=== PATIENT | female | born 1950 ===

== ENCOUNTER 2017-04-21 00:06 | Inpatient (IN) | payer OTHER ==
--- NOTE | 2017-04-21 00:38 | ED PDOC ---
Arrival/HPI - General Chief Complaint: Back Pain Time Seen by Provider: 04/21/17 00:24 Historian: Patient, Spouse - History of Present Illness Narrative History of Present Illness (Text): 04/21/17 00:38 Dipika Herrera is a 66 year old female, whose past medical history includes hypertension, hyperlipidemia, and colon cancer, who presents to the Emergency department accompanied by complaining of chest pain. 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 also reports some bilateral lower extremity swelling a few days , but denies any currently. Patient denies any fever, chills, shortness of breath, nausea, vomiting, diarrhea, urinary symptoms, neck pain, headache, dizziness, recent trauma, or any other complaints. Time/Duration: < week (4 days) Symptom Onset: Gradual Symptom Course: Worsening Activities at Onset: Rest, Light Context: Home Past Medical History - Provider Review Nursing Documentation Reviewed: Yes - Infectious Disease Hx of Infectious Diseases: None - Tetanus Immunization Tetanus Immunization: Unknown - Reproductive Menopause: Yes - Cardiac Hx Cardiac Arrhythmia: Yes Hx Hypertension: Yes - Pulmonary Hx Respiratory Disorders: No - Neurological Hx Neurological Disorder: No - HEENT Hx HEENT Disorder: No - Renal Hx Renal Disorder: No - Endocrine/Metabolic Hx Endocrine Disorders: Yes Hx Hypothyroidism: Yes - Hematological/Oncological Hx Blood Disorders: (pt is rh negative) Hx Cancer: Yes (dx with colon ca 07/2002, no chemo, had resection) - Integumentary Hx Dermatological Disorder: No - Musculoskeletal/Rheumatological Hx Musculoskeletal Disorders: No Hx Falls: No - Gastrointestinal Hx Gastrointestinal Disorders: No - Genitourinary/Gynecological Hx Genitourinary Disorders: No - Psychiatric Hx Depression: No Hx Emotional Abuse: No Hx Physical Abuse: No Hx Substance Use: No - Past Surgical History Past Surgical History: Non-Contributing - Surgical History Hx Orthopedic Surgery: Yes Other/Comment: fluid drained from cyst behind right knee. Colonoscopy - Anesthesia Hx Anesthesia: Yes Hx Anesthesia Reactions: Yes Hx Malignant Hyperthermia: No - Suicidal Assessment Feels Threatened In Home Enviroment: No Family/Social History - Physician Review Nursing Documentation Reviewed: Yes Family/Social History: No Known Family HX Smoking Status: Never Smoked Hx Alcohol Use: No Hx Substance Use: No Hx Substance Use Treatment: No Allergies/Home Meds Allergies/Adverse Reactions: Allergies nitroglycerin [From Nitro-Bid] Adverse Reaction (Verified 04/21/17 00:28) ANAPHYLAXIS Home Medications: Home Meds Medication Instructions Recorded Confirmed Zolpidem Tartrate [Ambien] 5 mg PO HS 08/15/14 02/01/15 amLODIPine [Norvasc] 5 mg PO DAILY 11/14/14 02/01/15 Amitriptyline [Elavil] 01/16/17 01/16/17 Atorvastatin [Lipitor] 01/16/17 Gabapentin [Neurontin] 01/16/17 Omeprazole Magnesium [Prilosec Otc] 01/16/17 Psyllium Husk [Metamucil] 01/16/17 hydroCHLOROthiazide [Hydrodiuril] 01/16/17 Review of Systems - Physician Review All systems were reviewed & negative as marked: Yes - Review of Systems Constitutional: Normal. absent: Fevers Eyes: Normal ENT: Normal Respiratory: Normal. absent: SOB, Cough Cardiovascular: Chest Pain Gastrointestinal: Normal. absent: Abdominal Pain, Diarrhea, Nausea, Vomiting Genitourinary Female: Normal. absent: Dysuria, Frequency, Hematuria, Urine Output Changes Musculoskeletal: Back Pain, Other (+bilateral lower extremity pain). absent: Neck Pain Skin: Normal. absent: Rash Neurological: Normal. absent: Headache, Dizziness Endocrine: Normal Hemo/Lymphatic: Normal Psychiatric: Normal Physical Exam Vital Signs Reviewed: Yes Temperature: Afebrile Blood Pressure: Normal Pulse: Regular Respiratory Rate: Normal Appearance: Positive for: Well-Appearing, Non-Toxic, Comfortable Pain Distress: None Mental Status: Positive for: Alert and Oriented X 3 - Systems Exam Head: Present: Atraumatic, Normocephalic Pupils: Present: PERRL Extroacular Muscles: Present: EOMI Conjunctiva: Present: Normal Mouth: Present: Moist Mucous Membranes Neck: Present: Normal Range of Motion Respiratory/Chest: Present: Clear to Auscultation, Good Air Exchange. No: Respiratory Distress, Accessory Muscle Use Cardiovascular: Present: Regular Rate and Rhythm, Normal S1, S2. No: Murmurs Abdomen: Present: Normal Bowel Sounds. No: Tenderness, Distention, Peritoneal Signs Back: Present: Normal Inspection Upper Extremity: Present: Normal Inspection. No: Cyanosis, Edema Lower Extremity: Present: Normal Inspection. No: Edema Neurological: Present: GCS=15, CN II-XII Intact, Speech Normal Skin: Present: Warm, Dry, Normal Color. No: Rashes Psychiatric: Present: Alert, Oriented x 3, Normal Insight, Normal Concentration Medical Decision Making ED Course and Treatment: 04/21/17 00:38 Impression: 66 year old female complaining of chest pain and back pain for 4 days. Plan: -- EKG -- Chest X-ray -- Labs, cardiac enzymes -- Urinalysis -- Morphine -- Zofran -- Reassess and disposition Prior Visits: Notes and results from previous visits were reviewed. On 01/06/2017, pt was seen in the Emergency department for right shoulder pain. Pt was d/c home. Progress Notes: Reviewed EKG, sinus bradycardia at 56 bpm. T wave changes laterally. Non- specific ST changes. 04/21/17 02:52 Reviewed radiology, Chest X-ray shows no active disease. 04/21/17 03:[address] Chandler, who is aware and agrees with plan. Accepts pt in to hospitalist service. Pt will go to Telemetry observation for chest pain. [employer] notified. - Lab Interpretations Lab Results: 04/21/17 01:45 04/21/17 01:45 Lab Results 04/21/17 01:45: WBC 6.9, RBC 4.66, Hgb 14.4, Hct 42.4, MCV 91.0, MCH 30.9, MCHC 34.0, RDW 14.1, Plt Count 229, MPV 10.8 04/21/17 01:45: Sodium 140, Potassium 4.1, Chloride 102, Carbon Dioxide 28, Anion Gap 14, BUN 15, Creatinine 0.7, Est GFR ( Amer) > 60, Est GFR (Non- Af Amer) > 60, Random Glucose 109, Calcium 9.3, Total Bilirubin 0.7, AST 52 H, ALT 58 H, Alkaline Phosphatase 115, Lactate Dehydrogenase 584, Total Creatine Kinase 205, Troponin I 0.01, Total Protein 8.7 H, Albumin 4.4, Globulin 4.4, Albumin/Globulin Ratio 1.0 L 04/21/17 01:45: PT 10.2, INR 0.94, APTT 28.7 I have reviewed the lab results: Yes - RAD Interpretation Radiology Orders: 04/21/17 00:41 CHEST PORTABLE [RAD] Stat - EKG Interpretation Interpreted by ED Physician: Yes Type: 12 lead EKG - Medication Orders Current Medication Orders: Discontinued Medications Aspirin (Aspirin) 325 mg PO ONCE STA Stop: 04/21/17 03:22 Morphine Sulfate (Morphine) 4 mg IVP STAT STA Stop: 04/21/17 00:47 Last Admin: 04/21/17 02:06 Dose: 4 mg Morphine Sulfate (Morphine) 4 mg IVP STAT STA Stop: 04/21/17 03:21 Ondansetron HCl (Zofran Inj) 4 mg IVP ONCE ONE Stop: 04/21/17 00:47 Last Admin: 04/21/17 02:06 Dose: 4 mg - Lorenaibe Statement The provider has reviewed the documentation as recorded by the Lorenaibnghia Meehan All medical record entries made by the Lorenaibnghia were at my direction and personally dictated by me. I have reviewed the chart and agree that the record accurately reflects my personal performance of the history, physical exam, medical decision making, and the department course for this patient. I have also personally directed, reviewed, and agree with the discharge instructions and disposition. Disposition/Present on Arrival - Present on Arrival Any Indicators Present on Arrival: No History of DVT/PE: No History of Uncontrolled Diabetes: No Urinary Catheter: No History of Decub. Ulcer: No History Surgical Site Infection Following: None - Disposition Have Diagnosis and Disposition been Completed?: Yes Diagnosis: Chest pain, Back pain Disposition: HOSPITALIZED Disposition Time: 03:30 Patient Plan: Observation Condition: STABLE Discharge Instructions (ExitCare): Chest Pain (ED)
[2017-04-21] MEDS ORDERED: Morphine 4 mg/ml ISec IVP STA ×2 (00:46→03:20)
[2017-04-21 01:56] LABS: HEMATOCRIT 42.4 % (36.0-48.0); MEAN CORPUSCULAR HEMOGLOBIN 30.9 pg (25.0-35.0); MEAN PLATELET VOLUME 10.8 fl (7.0-11.0); RED CELL DISTRIBUTION WIDTH 14.1 % (11.5-14.5); WHITE BLOOD COUNT 6.9 10^3/ul (4.5-11.0)
[2017-04-21 02:10] LABS: ALKALINE PHOSPHATASE 115 U/L (38-133); ALT/SGPT 58 U/L (7-56); AST/SGOT 52 U/L (15-39); BILIRUBIN,TOTAL 0.7 mg/dL (0.2-1.3); BLOOD UREA NITROGEN 15 mg/dL (7-21); CALCIUM 9.3 mg/dL (8.4-10.5); CARBON DIOXIDE 28 mmol/L (21-33); CHLORIDE 102 mmol/L (98-107); GFR AFRICAN-AMERICAN > 60; GLUCOSE,RANDOM 109 mg/dL (70-110); POTASSIUM 4.1 mmol/L (3.6-5.0); SODIUM 140 mmol/L (132-148); TOTAL PROTEIN 8.7 g/dL (5.8-8.3)
[2017-04-21 02:15] LABS: INR 0.94 (0.93-1.08); PARTIAL THROMBOPLASTIN TIME 28.7 Seconds (23.7-30.8)
[2017-04-21 02:22] LABS: TROPONIN I 0.01 ng/mL
[2017-04-21] MEDS ORDERED: Non Formulary Medication (Ketotifen Fumarate [Zaditor] 1 DROP) OD PRN (04:22)
[2017-04-21] MEDS ORDERED: Albuterol 0.083% Inhal Sol (2.5 mg/3 mL) UD IH PRN (04:26)
[2017-04-21 04:56] LABS: URINE BILIRUBIN NEGATIVE (NEGATIVE); URINE BLOOD NEGATIVE (NEGATIVE); URINE GLUCOSE (UA) NEGATIVE (NEGATIVE); URINE KETONE NEGATIVE (NEGATIVE); URINE LEUKOCYTE ESTERASE NEGATIVE Leu/uL (NEGATIVE); URINE PROTEIN 30 mg/dL (<30 mg/dL); URINE UROBILINOGEN 0.2 E.U./dL (<1 E.U./dL)
[2017-04-21 05:01] LABS: URINE APPEARANCE CLEAR (CLEAR); URINE COLOR YELLOW (YELLOW)
[2017-04-21 05:12] LABS: URINE EPITHELIAL CELLS 0 - 2 /hpf (0-5); URINE RBC 0 - 2 /hpf (0-2)
[2017-04-21 05:13] LABS: URINE BACTERIA OCC (NEG)
--- NOTE | 2017-04-21 05:32 | CP.PCM.HP ---
<RinkuBreedwardAlex shaw - Last Filed: 04/21/17 06:07> History of Present Illness - History of Present Illness History of Present Illness: CC: Back pain and weakness This is a 66yo F w/ a PMHx of Colon CA s/p surgery in remission, hypertension, hyperlipidemia who is presenting to the ED w/ back pain that is debilitating to the point she is getting weak and dropping things in her hands. This kind of back pain has never happened to her before. She states she has been feeling a ball in her back, in the lower right region, grow over the past few years. She has never had a scan of it. She denies bowel or bladder incontinence. She denies fevers/chills, GARCIA, SOB at rest, current chest pain, or lower extremity pain. She admits to lower extremity swelling, worse on the hot days of the week. She states she gets short of breath going up stairs, sleeps with one pillow, and never wakes up in the middle of the night gasping for air. Admits to 40lb weight gain over the past 4 months, unintnentional and not eating more. PMhx: Colon Cancer, HTN, HLD, back pain Surgeries: gallbladder removal, colon resection Allergies: nitroglycercin, but when questioned she said that she gets a fast heart beat and feels flushed which is what the medicine does Meds: please refer to ROMELIA famHx: Father with unkonwn cancer, sister with breast CA Social: Lives at home with , denies smoking.etoh.drugs.independent in all IADLs Present on Admission - Present on Admission Any Indicators Present on Admission: No History of DVT/PE: No History of Uncontrolled Diabetes: No Urinary Catheter: No Decubitus Ulcer Present: No Past Patient History - Infectious Disease Hx of Infectious Diseases: None - Tetanus Immunizations Tetanus Immunization: Unknown - Past Social History Smoking Status: Never Smoked - CARDIAC Hx Cardia Arrhythmia: Yes Hx Hypertension: Yes - PULMONARY Hx Respiratory Disorders: No - NEUROLOGICAL Hx Neurological Disorder: No - HEENT Hx HEENT Problems: No - RENAL Hx Chronic Kidney Disease: No - ENDOCRINE/METABOLIC Hx Endocrine Disorders: Yes Hx Hypothyroidism: Yes - HEMATOLOGICAL/ONCOLOGICAL Hx Blood Disorders: (pt is rh negative) Hx Cancer: Yes (dx with colon ca 07/2002, no chemo, had resection) - INTEGUMENTARY Hx Dermatological Problems: No - MUSCULOSKELETAL/RHEUMATOLOGICAL Hx Musculoskeletal Disorders: No Hx Falls: No - GASTROINTESTINAL Hx Gastrointestinal Disorders: No - GENITOURINARY/GYNECOLOGICAL Hx Genitourinary Disorders: No - PSYCHIATRIC Hx Depression: No Hx Emotional Abuse: No Hx Physical Abuse: No Hx Substance Use: No - SURGICAL HISTORY Hx Orthopedic Surgery: Yes Other/Comment: fluid drained from cyst behind right knee. Colonoscopy - ANESTHESIA Hx Anesthesia: Yes Hx Anesthesia Reactions: Yes Hx Malignant Hyperthermia: No Meds Allergies/Adverse Reactions: Allergies Allergy/AdvReac Type Severity Reaction Status Date / Time nitroglycerin AdvReac ANAPHYLAXIS Verified 04/21/17 00:28 [From Nitro-Bid] Physical Exam - Constitutional Appears: Well, Non-toxic Additional comments: obese female resting comfortably in bed at rest, when she moves around her back hurts a lot - Eye Exam Eye Exam: EOMI - ENT Exam ENT Exam: Mucous Membranes Moist - Neck Exam Neck exam: Positive for: Full Rom. Negative for: Lymphadenopathy - Respiratory Exam Respiratory Exam: Clear to Auscultation Bilateral, NORMAL BREATHING PATTERN. absent: Rales, Rhonchi, Wheezes - Cardiovascular Exam Cardiovascular Exam: REGULAR RHYTHM, +S1, +S2 - GI/Abdominal Exam GI & Abdominal Exam: Normal Bowel Sounds, Soft - Rectal Exam Rectal Exam: Deferred - Extremities Exam Extremities exam: Positive for: full ROM, normal capillary refill, normal inspection, pedal edema. Negative for: calf tenderness, joint swelling, tenderness - Back Exam Back exam: absent: CVA tenderness (L), CVA tenderness (R) - Neurological Exam Neurological exam: Alert, Oriented x3 Additional comments: walks with cane at baseline - Psychiatric Exam Psychiatric exam: Normal Affect Results - Vital Signs Recent Vital Signs: Last Vital Signs Temp 98.4 F 04/21/17 04:38 Pulse 52 L 04/21/17 04:38 Resp 16 04/21/17 04:38 BP 128/94 H 04/21/17 04:38 Pulse Ox 96 04/21/17 04:38 - Labs Result Diagrams: 04/21/17 01:45 04/21/17 01:45 Labs: Laboratory Results - last 24 hr 04/21/17 04:05 Urine Color Yellow Urine Appearance Clear Urine pH 7.0 Ur Specific [place] 1.015 Urine Protein 30 H Urine Glucose (UA) Negative Urine Ketones Negative Urine Blood Negative Urine Nitrate Negative Urine Bilirubin Negative Urine Urobilinogen 0.2 Ur Leukocyte Esterase Negative Urine RBC 0 - 2 Urine WBC 2 - 5 Ur Epithelial Cells 0 - 2 Urine Bacteria Occ Hyaline Casts 0 - 2 Assessment & Plan - Assessment and Plan (Free Text) Assessment: 66yo F admitted for back pain; Bulgarian Speaking Back Pain -obvious mass palpable in the lower back; f/u Cat scan chest abdomen, pelvis with IV contrast -pain control Chest Pain -cardio consult: Shanda; [place] piñas -echo ordered -c/w home meds -trend troponins; initial negative -initial EKG NSR with ST wave changes Leg Swelling -D Dimer ordered -given 20IV lasix -if d dimer elevated order ultrasound of lower extrem; no previous history of DVT HTN -c/w home meds HLD -c/w home meds Proph Pepcid Lovenox Heart Healthy Diet Case Discussed with Dr. Ramesh Espinoza PGY1 Night Float Decision To Admit - Pt Status Changed To: Hospital Disposition Of: Inpatient Admission - Admit Certification Admit to Inpatient:: After my assessment, the patient will require hospitalization for at least two midnights. This is because of the severity of symptoms shown, intensity of services needed, and/or the medical risk in this patient being treated as an outpatient. - . Bed Request Type: Remote Telemetry Admitting Physician: Benjamín Chandler <Benjamín Chandler - Last Filed: 04/22/17 12:06> Results - Vital Signs Recent Vital Signs: Last Vital Signs Temp 98 F 04/22/17 11:54 Pulse 52 L 04/22/17 11:54 Resp 20 04/22/17 11:54 BP 115/66 04/22/17 11:54 Pulse Ox 94 L 04/22/17 05:58 - Labs Result Diagrams: 04/22/17 07:40 04/22/17 07:40 Labs: Laboratory Results - last 24 hr 04/21/17 04/21/17 04/21/17 16:36 20:57 21:34 WBC RBC Hgb Hct MCV MCH MCHC RDW Plt Count MPV Gran % Lymph % (Auto) [place] % (Auto) Eos % (Auto) Baso % (Auto) Gran # Lymph # [place] # Eos # Baso # Sodium Potassium Chloride Carbon Dioxide Anion Gap BUN Creatinine Est GFR ( Amer) Est GFR (Non-Af Amer) POC Glucose (mg/dL) 106 120 H 97 Random Glucose Calcium Total Bilirubin AST ALT Alkaline Phosphatase Total Protein Albumin Globulin Albumin/Globulin Ratio [facility] 3rd Generation 04/22/17 04/22/17 04/22/17 07:29 07:40 07:40 WBC 6.4 RBC 4.62 Hgb 13.9 Hct 42.6 MCV 92.2 MCH 30.1 MCHC 32.6 RDW 14.3 Plt Count 226 MPV 11.3 H Gran % 74.5 H Lymph % (Auto) 15.9 L [place] % (Auto) 6.9 H Eos % (Auto) 2.4 Baso % (Auto) 0.3 Gran # 4.73 Lymph # 1.0 L [place] # 0.4 Eos # 0.2 Baso # 0.02 Sodium Potassium Chloride Carbon Dioxide Anion Gap BUN Creatinine Est GFR ( Amer) Est GFR (Non-Af Amer) POC Glucose (mg/dL) 98 Random Glucose Calcium Total Bilirubin AST ALT Alkaline Phosphatase Total Protein Albumin Globulin Albumin/Globulin Ratio [facility] 3rd Generation 3.53 04/22/17 04/22/17 04/22/17 07:40 07:55 10:59 WBC RBC Hgb Hct MCV MCH MCHC RDW Plt Count MPV Gran % Lymph % (Auto) [place] % (Auto) Eos % (Auto) Baso % (Auto) Gran # Lymph # [place] # Eos # Baso # Sodium 137 Potassium 3.9 Chloride 98 Carbon Dioxide 30 Anion Gap 13 BUN 19 Creatinine 0.9 Est GFR ( Amer) > 60 Est GFR (Non-Af Amer) > 60 POC Glucose (mg/dL) 97 144 H Random Glucose 93 Calcium 8.8 Total Bilirubin 0.7 AST 86 H ALT 93 H Alkaline Phosphatase 97 Total Protein 7.8 Albumin 4.0 Globulin 3.9 Albumin/Globulin Ratio 1.0 L [facility] 3rd Generation Attending/Attestation - Attestation I have personally seen and examined this patient.: Yes I have fully participated in the care of the patient.: Yes I have reviewed all pertinent clinical information: Yes Notes (Text): 04/22/17 12:05 Agree with history,physical examination, assessment and plan.
[2017-04-21] MEDS ORDERED: Iohexol 350 MG/100 ML VIAL ONE (05:47)
--- NOTE | 2017-04-21 07:01 | CT ---
EXAM: CT Chest With Intravenous Contrast CT Abdomen and Pelvis With Intravenous Contrast CLINICAL HISTORY: 66 years old, female; Pain; Abdominal pain; Generalized; Chest pain; Type not specified; Additional info: Back pain w mass TECHNIQUE: Axial computed tomography images of the chest, abdomen and pelvis with intravenous contrast. This CT exam was performed using one or more of the following dose reduction techniques: automated exposure control, adjustment of the mA and/or kV according to patient size, and/or use of iterative reconstruction technique. Coronal and sagittal reformatted images were created and reviewed. CONTRAST: 50 mL of OMNI 350 administered intravenously. EXAM DATE/TIME: 04/21/2017 5:27 AM COMPARISON: DX - CHEST PORTABLE 04/21/2017 2:11:53 AM FINDINGS: CHEST: Lungs: Unremarkable. No mass. No consolidation. Pleural space: Unremarkable. No significant effusion. No pneumothorax. Heart: Unremarkable. No cardiomegaly. No significant pericardial effusion. Mediastinum: Small hiatal hernia. ABDOMEN: Liver: Unremarkable. No mass. Gallbladder and bile ducts: Cholecystectomy with common duct dilatation. Common bile duct measures up to 1.4 cm. Pancreas: Unremarkable. No ductal dilation. No mass. Spleen: Unremarkable. No splenomegaly. Adrenals: Well defined low attenuation right adrenal mass measures 1.6 x 3.4 cm. Kidneys and ureters: Unremarkable. No hydronephrosis. No solid mass. Stomach and bowel: Unremarkable. No obstruction. No mucosal thickening. Appendix: No findings to suggest acute appendicitis. PELVIS: Bladder: Unremarkable. No mass. Reproductive: Endometrium measures up to 1.5 cm. CHEST, ABDOMEN and PELVIS: Intraperitoneal space: Unremarkable. No significant fluid collection. No free air. Bones/joints: Disc spacers at L2-3 and L3-4. Spondylosis thoracic spine. No acute fracture. No dislocation. Soft tissues: Lipoma right gluteus tiny muscle measures approximately 3.5 x 4 x 9 cm, inferior margin incompletely imaged. Small fat-containing umbilical hernia. Vasculature: Unremarkable. No aortic aneurysm. Lymph nodes: Unremarkable. No enlarged lymph nodes. IMPRESSION: 1. No acute abnormality in chest or abdomen. 2. Distended endometrium for age. Recommend additional evaluation with pelvic ultrasound. 3. Right adrenal adenoma. 4. Remaining findings as above.
--- NOTE | 2017-04-21 08:31 | RAD ---
HISTORY: fever COMPARISON: Chest x-ray performed 11/14/14 TECHNIQUE: Chest, one view. FINDINGS: Examination limited by habitus. LUNGS: No focal consolidation. Please note that chest x-ray has limited sensitivity for the detection of pulmonary masses. PLEURA: No significant pleural effusion identified. No definite pneumothorax . CARDIOVASCULAR: Heart size is top normal. OSSEOUS STRUCTURES: Degenerative changes. Acromioclavicular arthropathy. VISUALIZED UPPER ABDOMEN: Unremarkable. OTHER FINDINGS: None. IMPRESSION: No focal consolidation, significant pleural effusion, or definite pneumothorax identified.
[2017-04-21] MEDS: Enoxaparin 40 mg Syringe SC SCH (10:30)
[2017-04-21] MEDS: Levothyroxine 25 MCG TAB PO SCH (10:30)
[2017-04-21] MEDS: Pantoprazole 40 mg EC Tab PO SCH (10:34)
[2017-04-21] MEDS: Oxycodone/Acetaminophen 5/325 mg Tab PO PRN ×2 (10:35→17:36)
[2017-04-21] MEDS: Insulin Lispro 1 UNITS/0.01 ML SC SCH ×2 (10:36→11:30)
[2017-04-21 11:30] LABS: TROPONIN I < 0.01 ng/mL
[2017-04-21] MEDS: Psyllium Packet PO SCH (12:25)
--- NOTE | 2017-04-21 13:23 | CP.PCM.CON ---
History of Present Illness - History of Present Illness History of Present Illness: General Surgery Consult Re: Back mass HPI: 66F presented to ER C/O back pain that radiates to her R leg for 3 days. Pain is different from her chronic back pain and seems to originate from a lump in her R back that has been slowly growing in size for 4-5 years. Pain is debilitating to her ADLs and she is dropping things from her hands. Pain is worse with movement.This has never happened before. Denies F/C, N/V/D/C, SOB at rest, headache, chest pain, abd pain, dysuria, incontinence. ~40lb weight gain over the past 4 months, unintentional. Reports others in her family have needed large lipomas removed. PMH: Colon CA in 2001, HTN, HLD, Hypothyroid, chronic back pain PSH: Colon resection, cholecystectomy, Lumbar fusion SH: No tobacco, EtOH, or Drug use All: palpitations with Nitroglycerin Meds: See MAR Review of Systems - Review of Systems All systems: reviewed and no additional remarkable complaints except (as per HPI ) Past Patient History - Infectious Disease Hx of Infectious Diseases: None - Tetanus Immunizations Tetanus Immunization: Unknown - Past Social History Smoking Status: Never Smoked - CARDIAC Hx Cardia Arrhythmia: Yes Hx Hypertension: Yes - PULMONARY Hx Respiratory Disorders: No - NEUROLOGICAL Hx Neurological Disorder: No - HEENT Hx HEENT Problems: No - RENAL Hx Chronic Kidney Disease: No - ENDOCRINE/METABOLIC Hx Endocrine Disorders: Yes Hx Hypothyroidism: Yes - HEMATOLOGICAL/ONCOLOGICAL Hx Blood Disorders: (pt is rh negative) Hx Cancer: Yes (dx with colon ca 07/2002, no chemo, had resection) - INTEGUMENTARY Hx Dermatological Problems: No - MUSCULOSKELETAL/RHEUMATOLOGICAL Hx Musculoskeletal Disorders: No Hx Falls: No - GASTROINTESTINAL Hx Gastrointestinal Disorders: No - GENITOURINARY/GYNECOLOGICAL Hx Genitourinary Disorders: No - PSYCHIATRIC Hx Depression: No Hx Emotional Abuse: No Hx Physical Abuse: No Hx Substance Use: No - SURGICAL HISTORY Hx Orthopedic Surgery: Yes Other/Comment: fluid drained from cyst behind right knee. Colonoscopy - ANESTHESIA Hx Anesthesia: Yes Hx Anesthesia Reactions: Yes Hx Malignant Hyperthermia: No Meds Allergies/Adverse Reactions: Allergies Allergy/AdvReac Type Severity Reaction Status Date / Time nitroglycerin AdvReac ANAPHYLAXIS Verified 04/21/17 00:28 [From Nitro-Bid] - Medications Medications: Current Medications Acetaminophen (Tylenol 325mg Tab) 650 mg PO Q6H PRN PRN Reason: Fever >100.4 F Albuterol Sulfate (Albuterol 0.083% Inhal Ashtyn (2.5 Mg/3 Ml) Ud) 2.5 mg IH Q2H PRN PRN Reason: Shortness of Breath Amitriptyline HCl (Elavil) 50 mg PO HS [facility] Amlodipine Besylate (Norvasc) 5 mg PO DAILY [facility] Last Admin: 04/21/17 10:31 Dose: 5 mg Aspirin (Aspirin Chewable) 81 mg PO DAILY [facility] Last Admin: 04/21/17 10:34 Dose: 81 mg Atorvastatin Calcium (Lipitor) 80 mg PO HS [facility] Enoxaparin Sodium (Lovenox) 40 mg SC DAILY [facility] PRN Reason: Protocol Last Admin: 04/21/17 10:30 Dose: 40 mg Gabapentin (Neurontin) 600 mg PO TID [facility] PRN Reason: Protocol Last Admin: 04/21/17 10:31 Dose: 600 mg Hydrochlorothiazide (Hydrodiuril) 25 mg PO DAILY [facility] Last Admin: 04/21/17 10:34 Dose: 25 mg Insulin Human Lispro (Humalog) 0 units SC [facility] PRN Reason: Protocol Last Admin: 04/21/17 10:36 Dose: Not Given Levothyroxine Sodium (Synthroid) 25 mcg PO ACB [facility] Last Admin: 04/21/17 10:30 Dose: 25 mcg Non-Formulary Medication (Ketotifen Fumarate [Zaditor]) 1 drop OD Q8 PRN PRN Reason: Itching / Pruritus Oxycodone/Acetaminophen (Percocet 5/325 Mg Tab) 1 tab PO Q6 PRN PRN Reason: Pain, severe (8-10) Stop: 04/24/17 04:23 Last Admin: 04/21/17 10:35 Dose: 1 tab Pantoprazole Sodium (Protonix Ec Tab) 40 mg PO ACB [facility] Last Admin: 04/21/17 10:34 Dose: 40 mg Psyllium Hydrophilic Mucilloid (Hydrocil Instant) 1 pkt PO DAILY [facility] Last Admin: 04/21/17 12:25 Dose: 1 pkt Tramadol HCl (Ultram) 50 mg PO Q6 PRN PRN Reason: Pain, moderate (4-7) Zolpidem Tartrate (Ambien) 5 mg PO HS [facility] Physical Exam - Constitutional Appears: Non-toxic, No Acute Distress - Head Exam Head Exam: ATRAUMATIC, NORMOCEPHALIC - Eye Exam Eye Exam: EOMI. absent: Scleral icterus - ENT Exam ENT Exam: Mucous Membranes Moist Additional comments: trachea midline - Respiratory Exam Respiratory Exam: NORMAL BREATHING PATTERN. absent: Respiratory Distress - Cardiovascular Exam Cardiovascular Exam: RRR, +S1, +S2 - GI/Abdominal Exam GI & Abdominal Exam: Soft. absent: Distended, Guarding, Tenderness - Rectal Exam Rectal Exam: Deferred - Extremities Exam Extremities exam: Positive for: normal capillary refill, pedal edema (trace). Negative for: calf tenderness - Back Exam Back exam: absent: CVA tenderness (L), CVA tenderness (R), tenderness (10cm mobile mass beneath the skin on R mid back near the spine) - Neurological Exam Neurological exam: Alert, Oriented x3 - Psychiatric Exam Psychiatric exam: Normal Affect, Normal Mood - Skin Skin Exam: Dry, Warm Results - Vital Signs Recent Vital Signs: Last Vital Signs Temp 98.1 F 04/21/17 12:48 Pulse 58 L 04/21/17 12:48 Resp 20 04/21/17 12:48 BP 161/81 H 04/21/17 12:48 Pulse Ox 96 04/21/17 04:38 - Labs Result Diagrams: 04/21/17 01:45 04/21/17 01:45 Labs: Laboratory Results - last 24 hr 04/21/17 04/21/17 04/21/17 04:05 07:40 11:02 POC Glucose (mg/dL) 104 Lactate Dehydrogenase 610 Total Creatine Kinase 169 Troponin I < 0.01 Urine Color Yellow Urine Appearance Clear Urine pH 7.0 Ur Specific Winkelman 1.015 Urine Protein 30 H Urine Glucose (UA) Negative Urine Ketones Negative Urine Blood Negative Urine Nitrate Negative Urine Bilirubin Negative Urine Urobilinogen 0.2 Ur Leukocyte Esterase Negative Urine RBC 0 - 2 Urine WBC 2 - 5 Ur Epithelial Cells 0 - 2 Urine Bacteria Occ Hyaline Casts 0 - 2 04/21/17 11:36 POC Glucose (mg/dL) 98 Lactate Dehydrogenase Total Creatine Kinase Troponin I Urine Color Urine Appearance Urine pH Ur Specific Wink[place] Urine Protein Urine Glucose (UA) Urine Ketones Urine Blood Urine Nitrate Urine Bilirubin Urine Urobilinogen Ur Leukocyte Esterase Urine RBC Urine WBC Ur Epithelial Cells Urine Bacteria Hyaline Casts - Imaging and Cardiology CT scan - abdomen Status: Image reviewed by me, Report reviewed by me Assessment & Plan - Assessment and Plan (Free Text) Assessment: 66F with back pain possibly 2/2 R back mass Plan: Analgesia Dr. Brewster to see tomorrow. OR planning Saturday or Saturday D/W Dr. Ney Dang PGY3
[2017-04-21 13:58] VITALS: BMI 39.9
--- NOTE | 2017-04-21 17:21 | CON ---
DATE: 04/21/2017 REASON FOR CONSULTATION: Chest pain and back pain. HISTORY OF PRESENT ILLNESS: The patient is a 66-year-old female who has history of hypertension, hyp erlipidemia, and a history of colonic cancer, presented because of back pain and chest pain that is s harp in nature. The patient denies any associated diaphoresis and is unaware of any history of heart attack in the past. The patient is being followed by a maintenance planner by the name of Dr. Geiger in [facility], but does not recall undergoing any invasive cardiac workup. The patient denies any shortness of breath. SOCIAL HISTORY: Nonsmoker, nondrinker. MEDICATIONS: Albuterol inhaler 2.5 mg q. 2 hours p.r.n., Ambien 5 mg at bedtime, aspirin 81 mg once a day, Elavil 50 mg once a day, hydrochlorothiazide 25 mg once a day, Lipitor 80 mg once a day, Love nox 40 mg subcutaneous once a day, Neurontin 600 mg t.i.d., Norvasc 5 mg once a day, Protonix 40 mg p .o. once a day, once a day, Synthroid 25 mcg once a day, Ultram 50 mg p.o. q. 6 hours p.r.n. REVIEW OF SYSTEMS: No dizziness or syncope. No fever or chills. PHYSICAL EXAMINATION: GENERAL: The patient is an elderly female who does not appear to be in any distress. VITAL SIGNS: Blood pressure 161/81, heart rate 58, temperature 98.1, respiration 18. HEENT: Normocephalic. NECK: No JVD. CHEST: Clear. HEART: S1, S2 regular. EXTREMITIES: No edema. LABORATORY DATA: CBC is entirely within normal limits. PT, PTT are within normal limits. D-dimer is elevated at 0.63. SMA-7 is entirely within normal limits. Two sets of troponins are negative. Chest x-ray revealed a normal cardiac silhouette, no mediastinal dilatation is noted. EKG revealed s inus bradycardia at a rate of 56, lateral ischemic Q-wave changes. CT scan of the chest, abdomen and pelvis with intravenous contrast only revealed no acute abnormality in the chest or the abdomen. Dis tant for age. Recommend additional evaluation with pelvic ultrasound. Right adrenal adenoma. T here is no mention of an aortic aneurysm. ASSESSMENT: 1. Chest pain, myocardial infarction is ruled out. 2. Lateral ischemia, consider underlying coronary artery disease. 3. Mild sinus bradycardia. 4. Hypertension. RECOMMENDATIONS: Continue current Synthroid 25 mcg once a day, Norvasc 5 mg once a day, Lovenox at 4 0 mg once a day, Lipitor at 80 mg once a day, hydrochlorothiazide 25 mg once a day, Norvasc at 5 mg o nce a day, aspirin 81 mg once a day. Obtain an echocardiogram and venous Doppler of the lower extrem ities. Repeat 12-lead EKG. Obtain TSH level. Samm Montes MD cc: [id number] TT: 04/21/2017 17:20:32 Confirmation # [id number] Dictation # [id number]
--- NOTE | 2017-04-21 22:02 | CARD ---
APPROVED REPORT EKG Measurement Heart [id number] ND 160P70 [id number] <Conclusion> Sinus bradycardia T wave abnormality, consider lateral ischemia Abnormal ECG
[2017-04-22 08:01] LABS: ADD MANUAL DIFF? NO
[2017-04-22 08:03] LABS: BASO # 0.02 K/mm3 (0.0-2.0); BASO % 0.3 % (0.0-3.0); EOS # 0.2 (0.0-0.7); EOS % 2.4 % (1.5-5.0); GRAN # 4.73 (1.4-6.5); GRAN % 74.5 % (50.0-68.0); HEMATOCRIT 42.6 % (36.0-48.0); LYMPH % 15.9 % (22.0-35.0); MEAN CELL VOLUME 92.2 fL (80.0-105.0); MEAN CORPUSCULAR HEMOGLOBIN 30.1 pg (25.0-35.0); MEAN CORPUSCULAR HGB CONC 32.6 g/dl (31.0-37.0); MEAN PLATELET VOLUME 11.3 fl (7.0-11.0); MONO # 0.4 (0.1-0.6); MONO % 6.9 % (1.0-6.0); PLATELET COUNT 226 10^3/uL (120.0-450.0); RED CELL DISTRIBUTION WIDTH 14.3 % (11.5-14.5); WHITE BLOOD COUNT 6.4 10^3/ul (4.5-11.0)
[2017-04-22] MEDS: Insulin Lispro 1 UNITS/0.01 ML SC SCH ×5 (08:03→21:56)
[2017-04-22 08:18] LABS: ALKALINE PHOSPHATASE 97 U/L (38-133); ALT/SGPT 93 U/L (7-56); AST/SGOT 86 U/L (15-39); BILIRUBIN,TOTAL 0.7 mg/dL (0.2-1.3); BLOOD UREA NITROGEN 19 mg/dL (7-21); CALCIUM 8.8 mg/dL (8.4-10.5); CARBON DIOXIDE 30 mmol/L (21-33); CHLORIDE 98 mmol/L (95-110); GFR AFRICAN-AMERICAN > 60; GLUCOSE,RANDOM 93 mg/dL (70-110); POTASSIUM 3.9 mmol/L (3.6-5.0); SODIUM 137 mmol/L (132-148); TOTAL PROTEIN 7.8 g/dL (5.8-8.3)
[2017-04-22] MEDS: Enoxaparin 40 mg Syringe SC SCH (11:02)
[2017-04-22] MEDS: Levothyroxine 25 MCG TAB PO SCH (11:03)
[2017-04-22] MEDS: Pantoprazole 40 mg EC Tab PO SCH (11:03)
--- NOTE | 2017-04-22 12:22 | CP.PCM.PN ---
<GavinVivekmiryam - Last Filed: 04/22/17 12:26> Subjective - Date & Time of Evaluation Date of Evaluation: 04/22/17 Time of Evaluation: 08:00 - Subjective Subjective: Pt was seen and examined at bedside. Pt states she is feeling better compared to yesterday. Her back pain has improved. She is tolerating po diet. She is voiding regularly however has not had a bm and has mild complaints of constipation. Pt denied fever, chills, sob, chest pain, abdominal pains, n/v/d or urinary symptoms. Objective - Vital Signs/Intake and Output Vital Signs (last 24 hours): Temp Pulse Resp BP Pulse Ox 98 F 52 L 20 115/66 94 L 04/22/17 11:54 04/22/17 11:54 04/22/17 11:54 04/22/17 11:54 04/22/17 05:58 Intake and Output: 04/22/17 04/22/17 06:59 18:59 Intake Total 1260 Output Total 2 Balance 1258 - Medications Medications: Current Medications Albuterol Sulfate (Albuterol 0.083% Inhal Ashtyn (2.5 Mg/3 Ml) Ud) 2.5 mg IH Q2H PRN PRN Reason: Shortness of Breath Amitriptyline HCl (Elavil) 50 mg PO HS [facility] Last Admin: 04/21/17 21:58 Dose: 50 mg Amlodipine Besylate (Norvasc) 5 mg PO DAILY [facility] Last Admin: 04/22/17 11:03 Dose: 5 mg Aspirin (Aspirin Chewable) 81 mg PO DAILY [facility] Last Admin: 04/22/17 11:00 Dose: 81 mg Atorvastatin Calcium (Lipitor) 80 mg PO HS [facility] Last Admin: 04/21/17 21:58 Dose: 80 mg Enoxaparin Sodium (Lovenox) 40 mg SC DAILY [facility] PRN Reason: Protocol Last Admin: 04/22/17 11:02 Dose: 40 mg Gabapentin (Neurontin) 600 mg PO TID [facility] PRN Reason: Protocol Last Admin: 04/22/17 11:02 Dose: 600 mg Hydrochlorothiazide (Hydrodiuril) 25 mg PO DAILY [facility] Last Admin: 04/22/17 11:01 Dose: 25 mg Insulin Human Lispro (Humalog) 0 units SC [facility] PRN Reason: Protocol Last Admin: 04/22/17 08:03 Dose: Not Given Levothyroxine Sodium (Synthroid) 25 mcg PO ACB [facility] Last Admin: 04/22/17 11:03 Dose: 25 mcg Non-Formulary Medication (Ketotifen Fumarate [Zaditor]) 1 drop OD Q8 PRN PRN Reason: Itching / Pruritus Pantoprazole Sodium (Protonix Ec Tab) 40 mg PO ACB [facility] Last Admin: 04/22/17 11:03 Dose: 40 mg Psyllium Hydrophilic Mucilloid (Hydrocil Instant) 1 pkt PO DAILY [facility] Last Admin: 04/21/17 12:25 Dose: 1 pkt Tramadol HCl (Ultram) 50 mg PO Q6 PRN PRN Reason: Pain, moderate (4-7) Last Admin: 04/21/17 21:58 Dose: 50 mg Zolpidem Tartrate (Ambien) 5 mg PO HS [facility] Last Admin: 04/21/17 21:58 Dose: 5 mg - Labs Labs: 04/22/17 07:40 04/22/17 07:40 PT 10.2 Seconds (9.9-11.8) 04/21/17 01:45 INR 0.94 (0.93-1.08) 04/21/17 01:45 APTT 28.7 Seconds (23.7-30.8) 04/21/17 01:45 - Constitutional Appears: No Acute Distress - Head Exam Head Exam: ATRAUMATIC, NORMAL INSPECTION, NORMOCEPHALIC - Eye Exam Eye Exam: EOMI, Normal appearance, PERRL Pupil Exam: NORMAL ACCOMODATION, PERRL - ENT Exam ENT Exam: Mucous Membranes Moist, Normal Exam - Neck Exam Neck Exam: Full ROM, Normal Inspection. absent: Lymphadenopathy - Respiratory Exam Respiratory Exam: Clear to Ausculation Bilateral, NORMAL BREATHING PATTERN - Cardiovascular Exam Cardiovascular Exam: REGULAR RHYTHM, +S1, +S2. absent: Murmur - GI/Abdominal Exam GI & Abdominal Exam: Soft, Normal Bowel Sounds. absent: Tenderness - Extremities Exam Extremities Exam: Full ROM, Normal Capillary Refill, Normal Inspection. absent : Joint Swelling, Pedal Edema - Back Exam Back Exam: NORMAL INSPECTION - Neurological Exam Neurological Exam: Alert, Awake, CN II-XII Intact, Oriented x3 - Psychiatric Exam Psychiatric exam: Normal Affect, Normal Mood - Skin Skin Exam: Dry, Intact, Normal Color, Warm Assessment and Plan - Assessment and Plan (Free Text) Assessment: 66yo F admitted for back pain found to have mass likely lipoma. General surgery consulted for eval Back Pain -obvious mass palpable in the lower back; -Cat scan chest abdomen, pelvis with IV contrast unremarkable - Surgery, Dr. Brewster consulted, likely for OR tomorrow - NPO after midnight - Analgesia Chest Pain -cardio consult: Hannal; continue synthroid, lipitor, and norvasc -echo ordered, fu -trops negative Transaminitis - d/c tylenol, statin and percocet - keep ultram - if continues, FU with ABD US Leg Swelling -D Dimer ordered -40 mg IV lasix once -if d dimer elevated order ultrasound of lower extrem; no previous history of DVT HTN -c/w home meds HLD -c/w home meds Proph Pepcid Lovenox carb consisten NPO after midnight Seen reviewed and discussed with attending <Scott FERGUSON,David - Last Filed: 04/22/17 16:31> Objective - Vital Signs/Intake and Output Vital Signs (last 24 hours): Temp Pulse Resp BP Pulse Ox 98 F 52 L 20 115/66 94 L 04/22/17 11:54 04/22/17 11:54 04/22/17 11:54 04/22/17 12:30 04/22/17 05:58 Intake and Output: 04/22/17 04/22/17 06:59 18:59 Intake Total 1260 Output Total 2 Balance 1258 - Medications Medications: Current Medications Albuterol Sulfate (Albuterol 0.083% Inhal Ashtyn (2.5 Mg/3 Ml) Ud) 2.5 mg IH Q2H PRN PRN Reason: Shortness of Breath Amitriptyline HCl (Elavil) 50 mg PO HS [facility] Last Admin: 04/21/17 21:58 Dose: 50 mg Amlodipine Besylate (Norvasc) 5 mg PO DAILY [facility] Last Admin: 04/22/17 11:03 Dose: 5 mg Aspirin (Aspirin Chewable) 81 mg PO DAILY [facility] Last Admin: 04/22/17 11:00 Dose: 81 mg Atorvastatin Calcium (Lipitor) 80 mg PO HS [facility] Last Admin: 04/21/17 21:58 Dose: 80 mg Enoxaparin Sodium (Lovenox) 40 mg SC DAILY [facility] PRN Reason: Protocol Last Admin: 04/22/17 11:02 Dose: 40 mg Gabapentin (Neurontin) 600 mg PO TID [facility] PRN Reason: Protocol Last Admin: 04/22/17 13:36 Dose: 600 mg Hydrochlorothiazide (Hydrodiuril) 25 mg PO DAILY [facility] Last Admin: 04/22/17 11:01 Dose: 25 mg Insulin Human Lispro (Humalog) 0 units SC ACHS [facility] PRN Reason: Protocol Last Admin: 04/22/17 12:28 Dose: Not Given Levothyroxine Sodium (Synthroid) 25 mcg PO ACB [facility] Last Admin: 04/22/17 11:03 Dose: 25 mcg Non-Formulary Medication (Ketotifen Fumarate [Zaditor]) 1 drop OD Q8 PRN PRN Reason: Itching / Pruritus Oxycodone HCl (Oxycodone Immediate Release Tab) 5 mg PO Q6H PRN PRN Reason: Pain, severe (8-10) Pantoprazole Sodium (Protonix Ec Tab) 40 mg PO ACB [facility] Last Admin: 04/22/17 11:03 Dose: 40 mg Polyethylene Glycol (Miralax) 17 gm PO DAILY [facility] Last Admin: 04/22/17 13:36 Dose: 17 gm Psyllium Hydrophilic Mucilloid (Hydrocil Instant) 1 pkt PO DAILY [facility] Last Admin: 04/22/17 12:25 Dose: 1 pkt Tramadol HCl (Ultram) 50 mg PO Q6 PRN PRN Reason: Pain, moderate (4-7) Last Admin: 04/21/17 21:58 Dose: 50 mg Zolpidem Tartrate (Ambien) 5 mg PO HS [facility] Last Admin: 04/21/17 21:58 Dose: 5 mg - Labs Labs: 04/22/17 07:40 04/22/17 07:40 PT 10.2 Seconds (9.9-11.8) 04/21/17 01:45 INR 0.94 (0.93-1.08) 04/21/17 01:45 APTT 28.7 Seconds (23.7-30.8) 04/21/17 01:45 Attending/Attestation - Attestation I have personally seen and examined this patient.: Yes I have fully participated in the care of the patient.: Yes I have reviewed all pertinent clinical information, including history, physical exam and plan: Yes Notes (Text): 04/22/17 16:26 Patient was seen and examined with lpn medical assistant History was taken with th help of tow car driver..Agreed with resident assessment and plan. Patient is feeling better, her chest pain is likely atypical in nature, however EKG showed T wave inversion in the lateral lead.This was discussed with cardiology who will follow up Echo results and will make any decision regarding any further inpatient work up. Patient transaminase level have mildly increased, will avoid hepatotoxic medication and will monitor, could be due to congested liver, will give extra lasix today and will monitor. Back pain is better controlled today. Management plan was discussed in detail with patient Education was provided.
[2017-04-22] MEDS: Psyllium Packet PO SCH (12:25)
[2017-04-22] MEDS: POLYETHYLENE GLYCOL 3350 17 GM/Dose PACKET PO SCH (13:36)
[2017-04-22] MEDS ORDERED: oxyCODONE 5 mg Immediate Release Tab PO PRN (15:35)
--- NOTE | 2017-04-22 15:55 | PN ---
DATE: 04/22/2017 The patient complains of minimal chest pain. She denies any shortness of breath. PHYSICAL EXAMINATION: VITAL SIGNS: Blood pressure 115/66, heart rate 52, temperature 98, respirations 20. HEENT: Normocephalic. CHEST: Minimal rhonchi. HEART: S1, S2 regular. EXTREMITIES: Trace leg edema. LABORATORIES: Hemoglobin and hematocrit, white count and platelet count are within normal limits tod ay. SMA-7 is entirely within normal limits. A total of 3 troponins are within normal limits. ASSESSMENT: 1. Chest pain, myocardial infarction is ruled out. 2. Left ischemic EKG changes. 3. Mild sinus bradycardia. 4. Hypertension. RECOMMENDATIONS: Continue current aspirin, Elavil, hydrochlorothiazide, Lipitor, subcutaneous Loveno x and Norvasc as well as her Synthroid. I will follow the echocardiographic study once performed. T he most recent one was in 11/2014 which revealed mild concentric LVH with normal systolic function an d mildly sclerotic aortic valve. Samm Montes MD cc: [id number] TT: 04/22/2017 15:55:32 Confirmation # [id number] Dictation # [id number]
--- NOTE | 2017-04-22 20:05 | US ---
HISTORY: Leg pain and swelling. Evaluate for DVT PHYSICIAN(S): Kory Olea MD. TECHNIQUE: Duplex sonography and color-flow Doppler with graded compression were used to evaluate the deep venous systems of both lower extremities. FINDINGS: The visualized deep venous systems of both lower extremities are sonographically normal and compressible. Normal wave forms and augmentation are seen. There is no sonographic evidence for deep venous thrombosis in the visualized segments of both lower extremities. IMPRESSION: No sonographic evidence for deep venous thrombosis in the visualized segments of both lower extremities.
[2017-04-23 07:06] LABS: ADD MANUAL DIFF? NO
[2017-04-23 07:25] LABS: ALKALINE PHOSPHATASE 111 U/L (38-133); ALT/SGPT 79 U/L (7-56); AST/SGOT 49 U/L (15-39); BILIRUBIN,TOTAL 0.5 mg/dL (0.2-1.3); BLOOD UREA NITROGEN 20 mg/dL (7-21); CALCIUM 8.9 mg/dL (8.4-10.5); CARBON DIOXIDE 32 mmol/L (21-33); CHLORIDE 97 mmol/L (98-107); GFR AFRICAN-AMERICAN > 60; GLUCOSE,RANDOM 100 mg/dL (70-110); POTASSIUM 3.6 mmol/L (3.6-5.0); SODIUM 138 mmol/L (132-148); TOTAL PROTEIN 7.7 g/dL (5.8-8.3)
[2017-04-23 07:29] LABS: BASO # 0.03 K/mm3 (0.0-2.0); BASO % 0.5 % (0.0-3.0); EOS # 0.1 (0.0-0.7); EOS % 2.3 % (1.5-5.0); GRAN # 4.34 (1.4-6.5); GRAN % 71.7 % (50.0-68.0); HEMATOCRIT 41.1 % (36.0-48.0); LYMPH # 1.1 (1.2-3.4); LYMPH % 17.7 % (22.0-35.0); MEAN CELL VOLUME 91.3 fL (80.0-105.0); MEAN CORPUSCULAR HGB CONC 32.8 g/dl (31.0-37.0); MEAN PLATELET VOLUME 11.4 fl (7.0-11.0); MONO # 0.5 (0.1-0.6); MONO % 7.8 % (1.0-6.0); PLATELET COUNT 208 10^3/uL (120.0-450.0); RED CELL DISTRIBUTION WIDTH 13.8 % (11.5-14.5); WHITE BLOOD COUNT 6.1 10^3/ul (4.5-11.0)
[2017-04-23] MEDS: Insulin Lispro 1 UNITS/0.01 ML SC SCH ×4 (08:23→22:30)
[2017-04-23] MEDS ORDERED: Bupivacaine 0.5% Inj(30mL) ONE (11:07)
[2017-04-23] MEDS ORDERED: Propofol 10 mg/ml Inj (20 ML) ONE (11:15)
[2017-04-23] MEDS ORDERED: Lidocaine 1% Inj (20ml) ONE (11:15)
[2017-04-23] MEDS ORDERED: Midazolam 2 MG/2 ML VIAL ONE (11:15)
--- NOTE | 2017-04-23 11:15 | CP.PCM.PN ---
<Priscilla lAonso - Last Filed: 04/23/17 11:17> Subjective - Date & Time of Evaluation Date of Evaluation: 04/23/17 Time of Evaluation: 08:00 - Subjective Subjective: Pt was seen and examined at bedside. Pt states she is feeling better compared to yesterday. Her back pain has improved with medication, however still bothers her whenever she ambulates. She is tolerating po diet and was made NPO after midnight. She is voiding regularly however has not had a bm and has mild complaints of constipation. Pt denied fever, chills, sob, chest pain, abdominal pains, n/v/d or urinary symptoms. Objective - Vital Signs/Intake and Output Vital Signs (last 24 hours): Temp Pulse Resp BP Pulse Ox 97.9 F 57 L 14 166/76 H 96 04/23/17 06:00 04/23/17 11:05 04/23/17 11:05 04/23/17 11:05 04/23/17 11:05 Intake and Output: 04/23/17 04/23/17 06:59 18:59 Intake Total 80 Output Total 0 Balance 80 - Medications Medications: Current Medications Albuterol Sulfate (Albuterol 0.083% Inhal Ashtyn (2.5 Mg/3 Ml) Ud) 2.5 mg IH Q2H PRN PRN Reason: Shortness of Breath Amitriptyline HCl (Elavil) 50 mg PO HS [facility] Last Admin: 04/22/17 21:56 Dose: 50 mg Amlodipine Besylate (Norvasc) 5 mg PO DAILY [facility] Last Admin: 04/22/17 11:03 Dose: 5 mg Aspirin (Aspirin Chewable) 81 mg PO DAILY [facility] Last Admin: 04/22/17 11:00 Dose: 81 mg Atorvastatin Calcium (Lipitor) 80 mg PO HS [facility] Last Admin: 04/22/17 21:56 Dose: 80 mg Enoxaparin Sodium (Lovenox) 40 mg SC DAILY [facility] PRN Reason: Protocol Last Admin: 04/22/17 11:02 Dose: 40 mg Gabapentin (Neurontin) 600 mg PO TID [facility] PRN Reason: Protocol Last Admin: 04/22/17 17:39 Dose: 600 mg Hydrochlorothiazide (Hydrodiuril) 25 mg PO DAILY [facility] Last Admin: 04/22/17 11:01 Dose: 25 mg Insulin Human Lispro (Humalog) 0 units SC ACHS [facility] PRN Reason: Protocol Last Admin: 04/23/17 08:23 Dose: Not Given Levothyroxine Sodium (Synthroid) 25 mcg PO ACB [facility] Last Admin: 04/22/17 11:03 Dose: 25 mcg Non-Formulary Medication (Ketotifen Fumarate [Zaditor]) 1 drop OD Q8 PRN PRN Reason: Itching / Pruritus Oxycodone HCl (Oxycodone Immediate Release Tab) 5 mg PO Q6H PRN PRN Reason: Pain, severe (8-10) Last Admin: 04/22/17 22:06 Dose: 5 mg Pantoprazole Sodium (Protonix Ec Tab) 40 mg PO ACB [facility] Last Admin: 04/22/17 11:03 Dose: 40 mg Polyethylene Glycol (Miralax) 17 gm PO DAILY [facility] Last Admin: 04/22/17 13:36 Dose: 17 gm Psyllium Hydrophilic Mucilloid (Hydrocil Instant) 1 pkt PO DAILY [facility] Last Admin: 04/22/17 12:25 Dose: 1 pkt Tramadol HCl (Ultram) 50 mg PO Q6 PRN PRN Reason: Pain, moderate (4-7) Last Admin: 04/21/17 21:58 Dose: 50 mg Zolpidem Tartrate (Ambien) 5 mg PO [facility] Last Admin: 04/22/17 21:56 Dose: 5 mg - Labs Labs: 04/23/17 06:30 04/23/17 06:30 PT 10.2 Seconds (9.9-11.8) 04/21/17 01:45 INR 0.94 (0.93-1.08) 04/21/17 01:45 APTT 28.7 Seconds (23.7-30.8) 04/21/17 01:45 - Constitutional Appears: Non-toxic, No Acute Distress - Head Exam Head Exam: ATRAUMATIC, NORMAL INSPECTION, NORMOCEPHALIC - Eye Exam Eye Exam: EOMI, Normal appearance, PERRL Pupil Exam: NORMAL ACCOMODATION, PERRL - ENT Exam ENT Exam: Mucous Membranes Moist, Normal Exam - Neck Exam Neck Exam: Full ROM, Normal Inspection. absent: Lymphadenopathy - Respiratory Exam Respiratory Exam: Clear to Ausculation Bilateral, NORMAL BREATHING PATTERN - Cardiovascular Exam Cardiovascular Exam: REGULAR RHYTHM, +S1, +S2. absent: Murmur - GI/Abdominal Exam GI & Abdominal Exam: Soft, Normal Bowel Sounds. absent: Tenderness - Extremities Exam Extremities Exam: Full ROM, Normal Capillary Refill, Normal Inspection. absent : Joint Swelling, Pedal Edema - Back Exam Additional comments: rt thoracic mass - Neurological Exam Neurological Exam: Alert, Awake, CN II-XII Intact, Normal Gait, Oriented x3 - Psychiatric Exam Psychiatric exam: Normal Affect, Normal Mood - Skin Skin Exam: Dry, Intact, Normal Color, Warm Assessment and Plan - Assessment and Plan (Free Text) Assessment: 66yo F admitted for back pain found to have mass likely lipoma. General surgery consulted for eval Back Pain -obvious mass palpable in the lower back -Cat scan chest abdomen, pelvis with IV contrast unremarkable - Surgery, Dr. Brewster consulted, scheduled for lipoma removal today 11:00am - FU with Surgery reccs - Analgesia Chest Pain -cardio consult: Hannal; continue synthroid, lipitor, and norvasc -echo ordered, fu -trops negative Transaminitis - d/c tylenol, statin and percocet - if continues, FU with ABD US Leg Swelling -D Dimer ordered -40 mg IV lasix once - ultrasound of lower extremities negative HTN -c/w home meds HLD -c/w home meds Constipation - miralax colace, fu Proph Pepcid Lovenox carb consistent diet NPO after midnight Seen reviewed and discussed with attending <Scott FERGUSON,David - Last Filed: 04/23/17 16:57> Objective - Vital Signs/Intake and Output Vital Signs (last 24 hours): Temp Pulse Resp BP Pulse Ox 98 F 88 18 125/75 99 04/23/17 15:55 04/23/17 15:55 04/23/17 15:55 04/23/17 15:55 04/23/17 15:55 Intake and Output: 04/23/17 04/23/17 06:59 18:59 Intake Total 80 0 Output Total 0 100 Balance 80 -100 - Medications Medications: Current Medications Albuterol Sulfate (Albuterol 0.083% Inhal Ashtyn (2.5 Mg/3 Ml) Ud) 2.5 mg IH Q2H PRN PRN Reason: Shortness of Breath Amitriptyline HCl (Elavil) 50 mg PO HS [facility] Last Admin: 04/22/17 21:56 Dose: 50 mg Amlodipine Besylate (Norvasc) 5 mg PO DAILY [facility] Last Admin: 04/22/17 11:03 Dose: 5 mg Aspirin (Aspirin Chewable) 81 mg PO DAILY [facility] Last Admin: 04/22/17 11:00 Dose: 81 mg Atorvastatin Calcium (Lipitor) 80 mg PO [facility] Last Admin: 04/22/17 21:56 Dose: 80 mg Docusate Sodium (Colace) 100 mg PO DAILY [facility] Enoxaparin Sodium (Lovenox) 40 mg SC DAILY [facility] PRN Reason: Protocol Last Admin: 04/22/17 11:02 Dose: 40 mg Gabapentin (Neurontin) 600 mg PO TID [facility] PRN Reason: Protocol Last Admin: 04/23/17 15:29 Dose: Not Given Hydrochlorothiazide (Hydrodiuril) 25 mg PO DAILY [facility] Last Admin: 04/22/17 11:01 Dose: 25 mg Hydromorphone HCl (Dilaudid) 0.5 mg IVP Q15M PRN PRN Reason: Pain, moderate (4-7) Last Admin: 04/23/17 13:32 Dose: 0.5 mg Insulin Human Lispro (Humalog) 0 units SC [facility] PRN Reason: Protocol Last Admin: 04/23/17 16:23 Dose: Not Given Levothyroxine Sodium (Synthroid) 25 mcg PO ACB [facility] Last Admin: 04/22/17 11:03 Dose: 25 mcg Non-Formulary Medication (Ketotifen Fumarate [Zaditor]) 1 drop OD Q8 PRN PRN Reason: Itching / Pruritus Ondansetron HCl (Zofran Inj) 4 mg IVP ONCE PRN PRN Reason: Nausea/Vomiting Oxycodone HCl (Oxycodone Immediate Release Tab) 5 mg PO Q6H PRN PRN Reason: Pain, severe (8-10) Last Admin: 04/22/17 22:06 Dose: 5 mg Pantoprazole Sodium (Protonix Ec Tab) 40 mg PO ACB [facility] Last Admin: 04/22/17 11:03 Dose: 40 mg Polyethylene Glycol (Miralax) 17 gm PO DAILY [facility] Last Admin: 04/22/17 13:36 Dose: 17 gm Psyllium Hydrophilic Mucilloid (Hydrocil Instant) 1 pkt PO DAILY [facility] Last Admin: 04/22/17 12:25 Dose: 1 pkt Tramadol HCl (Ultram) 50 mg PO Q6 PRN PRN Reason: Pain, moderate (4-7) Last Admin: 04/21/17 21:58 Dose: 50 mg Zolpidem Tartrate (Ambien) 5 mg PO HS [facility] Last Admin: 04/22/17 21:56 Dose: 5 mg - Labs Labs: 04/23/17 06:30 04/23/17 06:30 PT 10.2 Seconds (9.9-11.8) 04/21/17 01:45 INR 0.94 (0.93-1.08) 04/21/17 01:45 APTT 28.7 Seconds (23.7-30.8) 04/21/17 01:45 Attending/Attestation - Attestation I have personally seen and examined this patient.: Yes I have fully participated in the care of the patient.: Yes I have reviewed all pertinent clinical information, including history, physical exam and plan: Yes Notes (Text): 04/23/17 16:55 Patient was seen and examined with medical underwriter .Agreed with resident assessment and plan. 66yo F w/ a PMHx of Colon CA s/p surgery in remission, hypertension, hyperlipidemia was admitted with chest pain,, Back pain,leg swelling and lipoma on the back.Chest pain is likely atypical, does has T wave inversion in lateral lead, troponins normal, awaiting Echo. to decide after Echo Leg Swelling has improved with diuresis, Transaminase level are coming down.Patient is schedule for surgery for lipoma today. Back pain is better Management plan was discussed in detail with patient Education was provided.
[2017-04-23] MEDS ORDERED: Sevoflurane - Inhalation Anesthetic Liq (250 ml) ONE (12:29)
--- NOTE | 2017-04-23 13:15 | PCM.SURG1 ---
Surgeon's Initial Post Op Note - Surgeon's Notes Surgeon: Dr. Brewster Field Marketing Specialist: Dr. Hobbs Type of Anesthesia: General LMA Pre-Operative Diagnosis: Right mid back and Right Hip Soft tissue Masses Operative Findings: fatty mass x 2 Post-Operative Diagnosis: same Operation Performed: excision of right mid back lipoma and excision of right hip intramuscular lipoma Specimen/Specimens Removed: lipomas x2 Estimated Blood Loss: EBL {In ML}: 10 Blood Products Given: N/A Drains Used: No Drains Post-Op Condition: Good Date of Surgery/Procedure: 04/23/17 Time of Surgery/Procedure: 13:15
[2017-04-23] MEDS ORDERED: Lactated Ringer's 1,000 ML IV SCH (13:16)
[2017-04-23] MEDS ORDERED: HYDROmorphone 0.5 mg/0.5 ml ISec IVP PRN ×2 (13:16→13:20)
[2017-04-23] MEDS ORDERED: HYDROmorphone 0.5 mg/0.5 ml ISec ONE (13:32)
[2017-04-23] MEDS: POLYETHYLENE GLYCOL 3350 17 GM/Dose PACKET PO SCH (17:41)
[2017-04-23] MEDS: Levothyroxine 25 MCG TAB PO SCH (17:45)
[2017-04-23] MEDS: Pantoprazole 40 mg EC Tab PO SCH (17:45)
[2017-04-23] MEDS: Psyllium Packet PO SCH (17:46)
[2017-04-23] MEDS: Benzocaine/Menthol (Cepacol) Lozenge MT SCH ×2 (19:02→20:02)
[2017-04-23] MEDS ORDERED: Benzocaine/Menthol (Cepacol) Lozenge MT SCH (20:00)
[2017-04-23] MEDS: Phenol Topical 1.4% Throat Spray (180 ml) MT PRN (20:02)
[2017-04-24] MEDS: Benzocaine/Menthol (Cepacol) Lozenge MT SCH ×5 (00:10→17:22)
[2017-04-24] MEDS: Phenol Topical 1.4% Throat Spray (180 ml) MT PRN ×3 (01:41→12:28)
[2017-04-24 06:00] VITALS: O2SAT 96
[2017-04-24 07:55] LABS: ADD MANUAL DIFF? NO
[2017-04-24 08:03] LABS: BASO # 0.02 K/mm3 (0.0-2.0); BASO % 0.3 % (0.0-3.0); EOS # 0.1 (0.0-0.7); GRAN # 5.58 (1.4-6.5); GRAN % 78.6 % (50.0-68.0); HEMATOCRIT 40.6 % (36.0-48.0); LYMPH # 0.9 (1.2-3.4); LYMPH % 13.1 % (22.0-35.0); MEAN CELL VOLUME 92.1 fL (80.0-105.0); MEAN CORPUSCULAR HEMOGLOBIN 30.6 pg (25.0-35.0); MEAN CORPUSCULAR HGB CONC 33.3 g/dl (31.0-37.0); MEAN PLATELET VOLUME 11.4 fl (7.0-11.0); MONO # 0.5 (0.1-0.6); PLATELET COUNT 200 10^3/uL (120.0-450.0); WHITE BLOOD COUNT 7.1 10^3/ul (4.5-11.0)
[2017-04-24 08:28] LABS: ALB/GLOB RATIO 1.1 (1.1-1.8); ALKALINE PHOSPHATASE 99 U/L (38-133); ALT/SGPT 74 U/L (7-56); AST/SGOT 53 U/L (15-39); BILIRUBIN,TOTAL 0.8 mg/dL (0.2-1.3); BLOOD UREA NITROGEN 14 mg/dL (7-21); CALCIUM 9.1 mg/dL (8.4-10.5); CARBON DIOXIDE 32 mmol/L (21-33); CHLORIDE 99 mmol/L (95-110); GFR AFRICAN-AMERICAN > 60; GLUCOSE,RANDOM 98 mg/dL (70-110); POTASSIUM 3.4 mmol/L (3.6-5.0); SODIUM 138 mmol/L (132-148); TOTAL PROTEIN 7.6 g/dL (5.8-8.3)
[2017-04-24] MEDS: Insulin Lispro 1 UNITS/0.01 ML SC SCH ×3 (08:44→17:01)
[2017-04-24] MEDS: Pantoprazole 40 mg EC Tab PO SCH (08:46)
[2017-04-24] MEDS: Levothyroxine 25 MCG TAB PO SCH (08:46)
[2017-04-24] MEDS ORDERED: Potassium Chloride 20 mEq ER Tab PO ONE (08:47)
[2017-04-24] MEDS ORDERED: Potassium Chloride 40 mEq/30 ml LIQ UD PO ONE (09:09)
--- NOTE | 2017-04-24 09:29 | CP.PCM.PN ---
Subjective - Date & Time of Evaluation Date of Evaluation: 04/24/17 Time of Evaluation: 07:50 - Subjective Subjective: Surgery Progress Note for Dr. Brewster Patient seen and examined at bedside. Overnight patient had minimal amount of bleed from gluteal wound, pressure dressing was applied. In the morning patient reports pain surgical sites. Patient denies headache, fever, chills, shortness of breath, chest pain, abdominal pain, nausea or vomiting. Objective - Vital Signs/Intake and Output Vital Signs (last 24 hours): Temp Pulse Resp BP Pulse Ox 97.9 F 57 L 18 137/70 96 04/24/17 05:59 04/24/17 05:59 04/24/17 05:59 04/24/17 05:59 04/24/17 05:59 Intake and Output: 04/24/17 04/24/17 06:59 18:59 Intake Total 240 Balance 240 - Medications Medications: Current Medications Albuterol Sulfate (Albuterol 0.083% Inhal Ashtyn (2.5 Mg/3 Ml) Ud) 2.5 mg IH Q2H PRN PRN Reason: Shortness of Breath Amitriptyline HCl (Elavil) 50 mg PO HS [facility] Last Admin: 04/23/17 22:39 Dose: 50 mg Amlodipine Besylate (Norvasc) 5 mg PO DAILY [facility] Last Admin: 04/23/17 17:45 Dose: 5 mg Aspirin (Aspirin Chewable) 81 mg PO DAILY [facility] Last Admin: 04/23/17 17:45 Dose: 81 mg Atorvastatin Calcium (Lipitor) 80 mg PO HS [facility] Last Admin: 04/23/17 22:39 Dose: 80 mg Benzocaine/Menthol (Cepacol Sore Throat) 1 joan MT Q4 [facility] Last Admin: 04/24/17 05:51 Dose: Not Given Docusate Sodium (Colace) 100 mg PO DAILY [facility] Last Admin: 04/23/17 17:45 Dose: 100 mg Enoxaparin Sodium (Lovenox) 40 mg SC DAILY [facility] PRN Reason: Protocol Last Admin: 04/22/17 11:02 Dose: 40 mg Gabapentin (Neurontin) 600 mg PO TID [facility] PRN Reason: Protocol Last Admin: 04/23/17 17:41 Dose: 600 mg Hydrochlorothiazide (Hydrodiuril) 25 mg PO DAILY [facility] Last Admin: 04/23/17 17:45 Dose: 25 mg Hydromorphone HCl (Dilaudid) 0.5 mg IVP Q15M PRN PRN Reason: Pain, moderate (4-7) Last Admin: 04/23/17 13:32 Dose: 0.5 mg Insulin Human Lispro (Humalog) 0 units SC [facility] PRN Reason: Protocol Last Admin: 04/24/17 08:44 Dose: Not Given Levothyroxine Sodium (Synthroid) 25 mcg PO ACB [facility] Last Admin: 04/24/17 08:46 Dose: 25 mcg Non-Formulary Medication (Ketotifen Fumarate [Zaditor]) 1 drop OD Q8 PRN PRN Reason: Itching / Pruritus Ondansetron HCl (Zofran Inj) 4 mg IVP ONCE PRN PRN Reason: Nausea/Vomiting Oxycodone HCl (Oxycodone Immediate Release Tab) 5 mg PO Q6H PRN PRN Reason: Pain, severe (8-10) Last Admin: 04/22/17 22:06 Dose: 5 mg Pantoprazole Sodium (Protonix Ec Tab) 40 mg PO ACB [facility] Last Admin: 04/24/17 08:46 Dose: 40 mg Phenol/Menthol (Phenaseptic 1.4% Throat [place]) 0 ml MT Q4H PRN PRN Reason: Sore Throat Last Admin: 04/24/17 08:46 Dose: 1 spr Polyethylene Glycol (Miralax) 17 gm PO DAILY [facility] Last Admin: 04/23/17 17:41 Dose: 17 gm Psyllium Hydrophilic Mucilloid (Hydrocil Instant) 1 pkt PO DAILY [facility] Last Admin: 04/23/17 17:46 Dose: 1 pkt Tramadol HCl (Ultram) 50 mg PO Q6 PRN PRN Reason: Pain, moderate (4-7) Last Admin: 04/21/17 21:58 Dose: 50 mg Zolpidem Tartrate (Ambien) 5 mg PO [facility] Last Admin: 04/23/17 22:39 Dose: 5 mg - Labs Labs: 04/24/17 07:30 04/24/17 07:30 PT 10.2 Seconds (9.9-11.8) 04/21/17 01:45 INR 0.94 (0.93-1.08) 04/21/17 01:45 APTT 28.7 Seconds (23.7-30.8) 04/21/17 01:45 - Constitutional Appears: Well, Non-toxic, No Acute Distress - Head Exam Head Exam: ATRAUMATIC, NORMAL INSPECTION - Eye Exam Eye Exam: EOMI, Normal appearance - ENT Exam ENT Exam: Mucous Membranes Moist - Neck Exam Neck Exam: Normal Inspection - Respiratory Exam Respiratory Exam: absent: Respiratory Distress - Cardiovascular Exam Cardiovascular Exam: +S1, +S2 - GI/Abdominal Exam GI & Abdominal Exam: Soft. absent: Tenderness - Back Exam Additional comments: Suture at right lower back was clean, dry, intact, no signs of infection appreciated. Right gluteal dressing clean, dry, and intact. No active bleeding appreciated. - Neurological Exam Neurological Exam: Alert, Awake, Oriented x3 - Psychiatric Exam Psychiatric exam: Normal Affect, Normal Mood - Skin Skin Exam: Warm Assessment and Plan - Assessment and Plan (Free Text) Assessment: 66 year old female with back pain possibly 2/2 R back mass Plan: -s/p Excision of right mid back lipoma and excision of right hip intramuscular lipoma POD #1 -Follow up with Dr. Brewster in 2 weeks -Apply pressure dressing if wounds start to ooze -No further surgical intervention needed -Patient is ok to be discharged -D/w with attending Dr. Brewster
[2017-04-24] MEDS: Psyllium Packet PO SCH (10:02)
[2017-04-24] MEDS: POLYETHYLENE GLYCOL 3350 17 GM/Dose PACKET PO SCH (10:02)
[2017-04-24] MEDS: Enoxaparin 40 mg Syringe SC SCH (10:09)
[2017-04-24] MEDS ORDERED: Potassium Chloride 20 mEq ER Tab PO SCH (12:15)
[2017-04-24 12:16] VITALS: BP 130/80; RESP 20; TEMP 98.2
--- NOTE | 2017-04-24 12:52 | PN ---
DATE: 04/24/2017 The patient denies chest pain or shortness of breath. She underwent removal of a gluteal lipoma that is apparently pressing on her sciatic nerve and she is currently ambulating normally. PHYSICAL EXAMINATION: VITAL SIGNS: Blood pressure 112/62, heart rate 76, temperature 97.9, respiration 18. HEENT: Normocephalic. NECK: No JVD. CHEST: Clear. HEART: S1, S2 regular. EXTREMITIES: No edema. LABORATORIES: Hemoglobin, hematocrit, white count and platelet count are within normal limits. Toda y's SMA-7 is within normal limits except for potassium of 3.4. ASSESSMENT: 1. Chest pain, myocardial infarction was ruled out. 2. Status post removal of gluteal soft mass, most likely lipoma. 3. Hypertension and diabetes mellitus. RECOMMENDATIONS: Case was discussed with Dr. Orellana. Continue current amlodipine, Synthroid, Lip itor, hydrochlorothiazide and aspirin. Start K-Dur at 20 mEq orally daily. I will review the echoca rdiograph study and if unremarkable, the patient can be discharged from the cardiac point to follow w ith her bottom wheeler, Dr. Geiger, in [place]. Samm Montes MD cc: [id number] TT: 04/24/2017 12:51:52 Confirmation # [id number] Dictation # [id number] en
--- NOTE | 2017-04-24 14:36 | CARD ---
APPROVED REPORT EXAM: Two-dimensional and M-mode echocardiogram with Doppler and color Doppler. INDICATION Chest Pain 2D DIMENSIONS Left Atrium (2D)4.2 (1.6-4.0cm)IVSd1.6 (0.7-1.1cm) LVDd5.0 (3.9-5.9cm)PWd1.1 (0.7-1.1cm) LVDs3.2 (2.5-4.0cm)FS (%) 35.1 % LVEF (%)64.2 (>50%) M-Mode DIMENSIONS Aortic Root2.70 (2.2-3.7cm)Aortic Cusp Exc.1.60 (1.5-2.0cm) Aortic Valve AoV Peak Zokxtvpk643.0cm/Brooks Peak GR.15mmHg Mitral Valve MV E Ijbdfman51.9cm/sMV A Aolrerer81.5cm/sE/A ratio0.9 TDI E/Lateral E'0.0E/Medial E'0.0 Tricuspid Valve TR Peak [id number]/sRAP [id number] Peak Gr.10mmHg [id number] LEFT VENTRICLE The left ventricle is normal size. There is mild concentric left ventricular hypertrophy. The left ventricular function is normal. The left ventricular ejection fraction is within the normal range. There is normal LV segmental wall motion. Transmitral Doppler flow pattern is Grade I-abnormal relaxation pattern. RIGHT VENTRICLE The right ventricle is normal size. There is normal right ventricular wall thickness. The right ventricular systolic function is normal. ATRIA The left atrium size is normal. The right atrium size is normal. AORTIC VALVE The aortic valve is not well visualized. No aortic regurgitation is present. There is no aortic valvular stenosis. MITRAL VALVE The mitral valve is moderately thickened. TRICUSPID VALVE There is no pulmonary hypertension. GREAT VESSELS The aortic root is normal in size. The IVC is normal in size and collapses >50% with inspiration. <Conclusion> The left ventricle is normal size. There is mild concentric left ventricular hypertrophy. The left ventricular function is normal. The left ventricular ejection fraction is within the normal range. There is normal LV segmental wall motion. Transmitral Doppler flow pattern is Grade I-abnormal relaxation pattern. The mitral valve is moderately thickened.
--- NOTE | 2017-04-24 15:01 | OP ---
PROCEDURE DATE: 04/23/2017 SURGEON: Dr. Brewster FERRYBOAT OPERATOR HELPER: Dr. Hobbs ANESTHESIA: General, Dr. Richmond. PREOPERATIVE DIAGNOSES: Lipomas mid back and right hip with back pain and sciatica. POSTOPERATIVE DIAGNOSES: Lipomas mid back and right hip with back pain and sciatica. PROCEDURE: Excision of lipoma upper back, excision lipoma right hip. DESCRIPTION OF OPERATION: With the patient anesthetized and on the operating table in a right side u p decubitus position, the right back and right hip were prepped and draped in the usual sterile varsha r. The patient had 2 previously marked soft subcutaneous masses, one being just to the right of the midline approximately at the L2 level and the being on the lateral aspect of the right buttock. The skin overlying the lesion on the back was infiltrated with 1% lidocaine and a 2-inch incision was mad e. After passing through some of the fibrous loculations of the skin, a lobulated yellow mass with s ome grittier areas consistent with fat necrosis was from the surrounding subcutaneous tissu e and the underlying muscle fascia and including dividing some loculations. This was delivered into the wound. It had a diameter of approximately 4 inches and had the gross appearance of a lipoma. Th e excision site was palpated and no additional atypical fat was identified and the incision was close d with running subcuticular suture of 4-0 Monocryl and Dermabond. Attention was turned to the right buttock, where an area of swelling was noted on the lateral aspect of the buttock. The skin overlyin g this was infiltrated with 1% lidocaine and a 2 inch transverse incision was made. When this was ta merari down through the subcutaneous tissue, the gluteus musculature was identified with the mass palpab le beneath it or within it. Superficial fibers of the gluteus were spread, exposing a yellow lobulat ed mass. The mass was noted to be ovoid in shape and extending in an anterior posterior direction ap proximately 5 inches almost from the border of the sacrum down toward the proximal thigh. In the sup erior inferior direction, it had a width of approximately 2 inches. The most distal portions of the mass were serially grasped with a sponge forceps and delivered out into the wound and the deep attach ments were then divided with cautery and again the operative site was palpated and no additional dyst rophic fat formations were identified. The wound was examined for hemostasis and closure was perform ed with running subcuticular suture of 4-0 Monocryl and Dermabond. The patient tolerated the procedu re well and transferred to recovery room in stable condition. Estimated blood loss for the procedure was 10 mL. Marycurz Brewster MD cc: [id number] TT: 04/24/2017 15:00:48 en
[2017-04-24 15:04] VITALS: PULSE 58
--- NOTE | 2017-04-25 15:38 | CP.PCM.DIS ---
<Priscilla Alonso - Last Filed: 04/25/17 15:49> Provider - Provider Date of Admission: 04/22/17 07:49 Attending physician: Sis Orellana MD Consults: General Surgery _ Dr. Brewster Time Spent in preparation of Discharge (in minutes): 45 Hospital Course - Lab Results Lab Results: Most Recent Lab Values WBC 7.1 10^3/ul (4.5-11.0) 04/24/17 07:30 RBC 4.41 10^6/uL (3.5-6.1) 04/24/17 07:30 Hgb 13.5 gm/dL (12.0-16.0) 04/24/17 07:30 Hct 40.6 % (36.0-48.0) 04/24/17 07:30 MCV 92.1 fL (80.0-105.0) 04/24/17 07:30 MCH 30.6 pg (25.0-35.0) 04/24/17 07:30 MCHC 33.3 g/dl (31.0-37.0) 04/24/17 07:30 RDW 14.0 % (11.5-14.5) 04/24/17 07:30 Plt Count 200 10^3/uL (120.0-450.0) 04/24/17 07:30 MPV 11.4 fl (7.0-11.0) H 04/24/17 07:30 Gran % 78.6 % (50.0-68.0) H 04/24/17 07:30 Lymph % (Auto) 13.1 % (22.0-35.0) L 04/24/17 07:30 [place] % (Auto) 7.0 % (1.0-6.0) H 04/24/17 07:30 Eos % (Auto) 1.0 % (1.5-5.0) L 04/24/17 07:30 Baso % (Auto) 0.3 % (0.0-3.0) 04/24/17 07:30 Gran # 5.58 (1.4-6.5) 04/24/17 07:30 Lymph # 0.9 (1.2-3.4) L 04/24/17 07:30 [place] # 0.5 (0.1-0.6) 04/24/17 07:30 Eos # 0.1 (0.0-0.7) 04/24/17 07:30 Baso # 0.02 K/mm3 (0.0-2.0) 04/24/17 07:30 PT 10.2 Seconds (9.9-11.8) 04/21/17 01:45 INR 0.94 (0.93-1.08) 04/21/17 01:45 APTT 28.7 Seconds (23.7-30.8) 04/21/17 01:45 D-Dimer, Quantitative 0.63 mg/L FEU (0-0.50) H 04/21/17 01:45 Sodium 138 mmol/L (132-148) 04/24/17 07:30 Potassium 3.4 mmol/L (3.6-5.0) L 04/24/17 07:30 Chloride 99 mmol/L (95-110) 04/24/17 07:30 Carbon Dioxide 32 mmol/L (21-33) 04/24/17 07:30 Anion Gap 10 (10-20) 04/24/17 07:30 BUN 14 mg/dL (7-21) 04/24/17 07:30 Creatinine 0.8 mg/dL (0.5-1.4) 04/24/17 07:30 Est GFR ( Amer) > 60 04/24/17 07:30 Est GFR (Non-Af Amer) > 60 04/24/17 07:30 POC Glucose (mg/dL) 92 mg/dL (65-110) 04/24/17 16:49 Random Glucose 98 mg/dL (70-110) 04/24/17 07:30 Calcium 9.1 mg/dL (8.4-10.5) 04/24/17 07:30 Total Bilirubin 0.8 mg/dL (0.2-1.3) 04/24/17 07:30 AST 53 U/L (15-39) H 04/24/17 07:30 ALT 74 U/L (7-56) H 04/24/17 07:30 Alkaline Phosphatase 99 U/L (38-133) 04/24/17 07:30 Lactate Dehydrogenase 610 U/L (333-699) 04/21/17 11:02 Total Creatine Kinase 169 U/L (35-230) 04/21/17 11:02 Troponin I < 0.01 ng/mL 04/22/17 12:28 Total Protein 7.6 g/dL (5.8-8.3) 04/24/17 07:30 Albumin 3.9 g/dL (3.0-4.8) 04/24/17 07:30 Globulin 3.7 gm/dL 04/24/17 07:30 Albumin/Globulin Ratio 1.1 (1.1-1.8) 04/24/17 07:30 TSH 3rd Generation 3.53 mIU/mL (0.46-4.68) 04/22/17 07:40 Urine Color Yellow (YELLOW) 04/21/17 04:05 Urine Appearance Clear (CLEAR) 04/21/17 04:05 Urine pH 7.0 (4.7-8.0) 04/21/17 04:05 Ur Specific [place] 1.015 (1.005-1.035) 04/21/17 04:05 Urine Protein 30 mg/dL (<30 mg/dL) H 04/21/17 04:05 Urine Glucose (UA) Negative mg/dL (NEGATIVE) 04/21/17 04:05 Urine Ketones Negative mg/dL (NEGATIVE) 04/21/17 04:05 Urine Blood Negative (NEGATIVE) 04/21/17 04:05 Urine Nitrate Negative (NEGATIVE) 04/21/17 04:05 Urine Bilirubin Negative (NEGATIVE) 04/21/17 04:05 Urine Urobilinogen 0.2 E.U./dL (<1 E.U./dL) 04/21/17 04:05 Ur Leukocyte Esterase Negative Delisa/uL (NEGATIVE) 04/21/17 04:05 Urine RBC 0 - 2 /hpf (0-2) 04/21/17 04:05 Urine WBC 2 - 5 /hpf (0-6) 04/21/17 04:05 Ur Epithelial Cells 0 - 2 /hpf (0-5) 04/21/17 04:05 Urine Bacteria Occ (NEG) 04/21/17 04:05 Hyaline Casts 0 - 2 /hpf 04/21/17 04:05 - Hospital Course Hospital Course: 66yo F w/ a PMHx of Colon CA s/p surgery in remission, hypertension, hyperlipidemia who is presenting to the ED w/ back pain that is debilitating to the point she is getting weak and dropping things in her hands. This kind of back pain has never happened to her before. She states she has been feeling a ball in her back, in the lower right region, which has grown over the past few years. She has never had it investigated or imaged. She denies bowel or bladder incontinence. She admitted to lower extremity swelling, and 40lb unintentional weight gain over the past 4 months. Pt also had complaints of chest pain upon admission. Pt was admitted for intractable back pain and atypical chest pain to r/o acs. EKG showed lateral lead T wave inversions. Cardiology was consulted, Dr. Montes. Trops were drawn and resulted negative. An echo was ordered and demonstrated an EF of 64%. Pt's chest pain resolved and Dr. 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 Pt also had mild transaminitis while inpatient. All nephrotoxic agents were stopped and pt was diuresed with improvement of pt's transaminitis likely secondary to congested liver. General surgery was consulted for Lipoma on pt's rt lower back that had been causing pt's intractable back pain. Dr. Brewster operated on 04/23/17. Pt was s/p Excision of right mid back lipoma and excision of right hip intramuscular lipoma. Pt tolerated procedure well. Pt was tolerating diet, ambulating, passing flatus and moving bowels and bladder regularly. Pt was cleared to be dc'ed by surgery on POD #1 with the following instructions:Follow up with Dr. Brewster in 2 weeks, Apply pressure dressing if wounds start to ooze. There was no further surgical intervention required and pt was dc'ed with fu with PMD of pt choice or [facility] within 1 week. Pt was to fu with Dr. Geiger, cardiology in [place] within 1 week. Discharge Exam - Head Exam Head Exam: ATRAUMATIC, NORMAL INSPECTION - Eye Exam Eye Exam: EOMI, Normal appearance, PERRL Pupil Exam: NORMAL ACCOMODATION, PERRL - ENT Exam ENT Exam: Mucous Membranes Moist - Respiratory Exam Respiratory Exam: Clear to PA & Lateral, NORMAL BREATHING PATTERN, UNREMARKABLE - Cardiovascular Exam Cardiovascular Exam: RRR, +S1, +S2 - GI/Abdominal Exam GI & Abdominal Exam: Normal Bowel Sounds, Soft. absent: Tenderness - Extremities Exam Extremities exam: normal inspection - Neurological Exam Neurological exam: Alert, CN II-XII Intact, Normal Gait, Oriented x3, Reflexes Normal - Psychiatric Exam Psychiatric exam: Normal Affect, Normal Mood - Skin Skin Exam: Dry, Intact, Normal Color, Warm Discharge Plan - Discharge Medications Prescriptions: oxyCODONE [oxyCODONE Immediate Release Tab] 5 mg PO Q6H PRN #9 tab PRN Reason: Pain, Severe (8-10) - Follow Up Plan Condition: STABLE Disposition: HOME/ ROUTINE Instructions: Diabetes Mellitus Type 2 in Adults (DC), Low Back Strain (GEN), Lipoma (GEN), Back Pain (GEN) Additional Instructions: Please see Dr. Brewster in the office in 2 weeks. Please apply dressings as instructed to the surgical site daily. Please return to your doctor at [facility] within one week for further evaluation and management. Continue taking your medications as you were prior to coming to the hospital. Referrals: Marycruz Brewster MD [Staff Provider] - <Sis Orellana - Last Filed: 04/25/17 16:43> Provider - Provider Date of Admission: 04/22/17 07:49 Attending physician: Sis Orellana MD Hospital Course - Lab Results Lab Results: Most Recent Lab Values WBC 7.1 10^3/ul (4.5-11.0) 04/24/17 07:30 RBC 4.41 10^6/uL (3.5-6.1) 04/24/17 07:30 Hgb 13.5 gm/dL (12.0-16.0) 04/24/17 07:30 Hct 40.6 % (36.0-48.0) 04/24/17 07:30 MCV 92.1 fL (80.0-105.0) 04/24/17 07:30 MCH 30.6 pg (25.0-35.0) 04/24/17 07:30 MCHC 33.3 g/dl (31.0-37.0) 04/24/17 07:30 RDW 14.0 % (11.5-14.5) 04/24/17 07:30 Plt Count 200 10^3/uL (120.0-450.0) 04/24/17 07:30 MPV 11.4 fl (7.0-11.0) H 04/24/17 07:30 Gran % 78.6 % (50.0-68.0) H 04/24/17 07:30 Lymph % (Auto) 13.1 % (22.0-35.0) L 04/24/17 07:30 [place] % (Auto) 7.0 % (1.0-6.0) H 04/24/17 07:30 Eos % (Auto) 1.0 % (1.5-5.0) L 04/24/17 07:30 Baso % (Auto) 0.3 % (0.0-3.0) 04/24/17 07:30 Gran # 5.58 (1.4-6.5) 04/24/17 07:30 Lymph # 0.9 (1.2-3.4) L 04/24/17 07:30 [place] # 0.5 (0.1-0.6) 04/24/17 07:30 Eos # 0.1 (0.0-0.7) 04/24/17 07:30 Baso # 0.02 K/mm3 (0.0-2.0) 04/24/17 07:30 PT 10.2 Seconds (9.9-11.8) 04/21/17 01:45 INR 0.94 (0.93-1.08) 04/21/17 01:45 APTT 28.7 Seconds (23.7-30.8) 04/21/17 01:45 D-Dimer, Quantitative 0.63 mg/L FEU (0-0.50) H 04/21/17 01:45 Sodium 138 mmol/L (132-148) 04/24/17 07:30 Potassium 3.4 mmol/L (3.6-5.0) L 04/24/17 07:30 Chloride 99 mmol/L (95-110) 04/24/17 07:30 Carbon Dioxide 32 mmol/L (21-33) 04/24/17 07:30 Anion Gap 10 (10-20) 04/24/17 07:30 BUN 14 mg/dL (7-21) 04/24/17 07:30 Creatinine 0.8 mg/dL (0.5-1.4) 04/24/17 07:30 Est GFR ( Amer) > 60 04/24/17 07:30 Est GFR (Non-Af Amer) > 60 04/24/17 07:30 POC Glucose (mg/dL) 92 mg/dL (65-110) 04/24/17 16:49 Random Glucose 98 mg/dL (70-110) 04/24/17 07:30 Calcium 9.1 mg/dL (8.4-10.5) 04/24/17 07:30 Total Bilirubin 0.8 mg/dL (0.2-1.3) 04/24/17 07:30 AST 53 U/L (15-39) H 04/24/17 07:30 ALT 74 U/L (7-56) H 04/24/17 07:30 Alkaline Phosphatase 99 U/L (38-133) 04/24/17 07:30 Lactate Dehydrogenase 610 U/L (333-699) 04/21/17 11:02 Total Creatine Kinase 169 U/L (35-230) 04/21/17 11:02 Troponin I < 0.01 ng/mL 04/22/17 12:28 Total Protein 7.6 g/dL (5.8-8.3) 04/24/17 07:30 Albumin 3.9 g/dL (3.0-4.8) 04/24/17 07:30 Globulin 3.7 gm/dL 04/24/17 07:30 Albumin/Globulin Ratio 1.1 (1.1-1.8) 04/24/17 07:30 TSH 3rd Generation 3.53 mIU/mL (0.46-4.68) 04/22/17 07:40 Urine Color Yellow (YELLOW) 04/21/17 04:05 Urine Appearance Clear (CLEAR) 04/21/17 04:05 Urine pH 7.0 (4.7-8.0) 04/21/17 04:05 Ur Specific [place] 1.015 (1.005-1.035) 04/21/17 04:05 Urine Protein 30 mg/dL (<30 mg/dL) H 04/21/17 04:05 Urine Glucose (UA) Negative mg/dL (NEGATIVE) 04/21/17 04:05 Urine Ketones Negative mg/dL (NEGATIVE) 04/21/17 04:05 Urine Blood Negative (NEGATIVE) 04/21/17 04:05 Urine Nitrate Negative (NEGATIVE) 04/21/17 04:05 Urine Bilirubin Negative (NEGATIVE) 04/21/17 04:05 Urine Urobilinogen 0.2 E.U./dL (<1 E.U./dL) 04/21/17 04:05 Ur Leukocyte Esterase Negative Delisa/uL (NEGATIVE) 04/21/17 04:05 Urine RBC 0 - 2 /hpf (0-2) 04/21/17 04:05 Urine WBC 2 - 5 /hpf (0-6) 04/21/17 04:05 Ur Epithelial Cells 0 - 2 /hpf (0-5) 04/21/17 04:05 Urine Bacteria Occ (NEG) 04/21/17 04:05 Hyaline Casts 0 - 2 /hpf 04/21/17 04:05 Attending/Attestation - Attestation I have personally seen and examined this patient.: Yes I have fully participated in the care of the patient.: Yes I have reviewed all pertinent clinical information, including history, physical exam and plan: Yes Notes (Text): attending note; Patient was seen and examined with resident. Patient is a 66 -year-old female with past medical history of Colon CA s/p surgery in remission, hypertension, hyperlipidemia was admitted with chest pain, , Back pain,leg swelling and lipoma on the back.Chest pain is likely atypical, does has T wave inversion in lateral lead. troponin is normal. cardiology evaluation with appreciated. Echo normal. status post lipoma resection in the right Back. dressing is clean. patient will follow up with surgery Dr. Brewster in 2 weeks. Continue regular dressing change. Follow up with PMD in [facility]. diagnosis; Atypical chest pain Lipoma resection back pain
== END 2017-04-24 18:48 | disposition home or self-care (01) | DRG 265 ==
LOC: ED 00:06 → ERH 03:31 → 2RSO 06:25 → 2RNO 16:24 → OBSVTOIN 04-22 07:49
PROVIDERS: ADMIT Internal Medicine; ATTEND Internal Medicine
PROC: 0JBC0ZZ Excision of Pelvic Region Subcutaneous Tissue and Fascia, Open Approach (ICD-10-PCS; 2017-04-23)
PROC: 0JB70ZZ Excision of Back Subcutaneous Tissue and Fascia, Open Approach (ICD-10-PCS; principal; 2017-04-23 11:00)
DX: D17.79 Benign lipomatous neoplasm of other sites (principal); I35.0 Nonrheumatic aortic (valve) stenosis; K76.1 Chronic passive congestion of liver; I10 Essential (primary) hypertension; M54.9 Dorsalgia, unspecified; E78.5 Hyperlipidemia, unspecified; G89.29 Other chronic pain; E11.9 Type 2 diabetes mellitus without complications; E03.9 Hypothyroidism, unspecified; K59.00 Constipation, unspecified; M54.30 Sciatica, unspecified side; Z79.899 Other long term (current) drug therapy; Z80.3 Family history of malignant neoplasm of breast; Z85.038 Personal history of other malignant neoplasm of large intestine; Z80.9 Family history of malignant neoplasm, unspecified; Z88.8 Allergy status to other drugs, medicaments and biological substances; Z87.892 Personal history of anaphylaxis; Z90.49 Acquired absence of other specified parts of digestive tract; R07.9 Chest pain, unspecified; R00.1 Bradycardia, unspecified; R74.0 Nonspecific elevation of levels of transaminase and lactic acid dehydrogenase [LDH]

== ENCOUNTER 2017-07-10 02:04 | Inpatient (IN) | payer OTHER ==
--- NOTE | 2017-07-10 02:23 | ED PDOC ---
Arrival/HPI <Jair Montague - Last Filed: 07/10/17 03:17> - General Historian: Patient, Spouse <Wilmer Dupree - Last Filed: 07/10/17 05:25> - General Chief Complaint: High Blood Pressure Time Seen by Provider: 07/10/17 02:09 - History of Present Illness Narrative History of Present Illness (Text): 07/10/17 02:22 67 year old female patient with past medical history of Colon Ca s/p resection, HTN, HLD and carpel tunnel of the right wrist. Patient states that she started to feel a headache starting around 7-8pm. The headache felt as a pounding pulsation in the occipital region. She states she attempted to go to sleep and woke up a couple hours later at midnight due to the pain. The headache was intensified. The patient checked her BP and found it to be SBP > 200. The patient states that she gets headaches like this when her BP is elevated. Patient reports chest discomfort located substernally, non radiating. The discomfort is described as dull in nature. She complains on increased right arm numbness. She has baseline numbness due to carpel tunnel in her right wrist that she periodically gets injections for pain. The numbness is usually isolated to below her wrist but currently goes up her entire arm. The patient reports blurred vision with floaters. Patient reports some nausea but has not vomited. Denies f/c, d/c, sob, lightheadedness, dizziness, focal weakness or slurred speech. PMH: Colon Cancer, HTN, HLD, right sided carpel tunnel PSH: gallbladder removal, colon resection Allergies: nitroglycercin FamHx: Father with unknown cancer, sister with breast CA Social: denies tobacco, alcohol and/or illicit drugs 07/10/17 03:31 (Wilmer Dupree) Past Medical History - Provider Review Nursing Documentation Reviewed: Yes - Infectious Disease Hx of Infectious Diseases: None - Tetanus Immunization Tetanus Immunization: Unknown - Reproductive Menopause: Yes - Cardiac Hx Hypertension: Yes - Pulmonary Hx Respiratory Disorders: No - Neurological Hx Neurological Disorder: No - HEENT Hx HEENT Disorder: No - Renal Hx Renal Disorder: No - Endocrine/Metabolic Hx Hypothyroidism: Yes - Hematological/Oncological Hx Blood Disorders: (pt is rh negative) Hx Cancer: Yes (dx with colon ca 07/2002, no chemo, had resection) - Integumentary Hx Dermatological Disorder: No - Musculoskeletal/Rheumatological Hx Musculoskeletal Disorders: No Hx Falls: No - Gastrointestinal Hx Gastrointestinal Disorders: No - Genitourinary/Gynecological Hx Genitourinary Disorders: No - Psychiatric Hx Depression: No Hx Emotional Abuse: No Hx Physical Abuse: No Hx Substance Use: No - Past Surgical History Past Surgical History: Non-Contributing - Surgical History Hx Orthopedic Surgery: Yes Other/Comment: fluid drained from cyst behind right knee. Colonoscopy/colon cancer 2001 - Anesthesia Hx Anesthesia: Yes Hx Anesthesia Reactions: Yes Hx Malignant Hyperthermia: No - Suicidal Assessment Feels Threatened In Home Enviroment: No <Wilmer Dupree - Last Filed: 07/10/17 05:25> Family/Social History - Physician Review Nursing Documentation Reviewed: Yes Family/Social History: Neoplasm/Cancer (sister breast ca; father unknown cancer) Smoking Status: Never Smoked Hx Alcohol Use: No Hx Substance Use: No Hx Substance Use Treatment: No <Wilmer Dupree - Last Filed: 07/10/17 05:25> Allergies/Home Meds <Jair [place] - Last Filed: 07/10/17 03:17> <Wilmer Dupree - Last Filed: 07/10/17 05:25> Allergies/Adverse Reactions: Allergies nitroglycerin [From Nitro-Bid] Adverse Reaction (Verified 07/10/17 02:11) ANAPHYLAXIS Home Medications: Home Meds Medication Instructions Recorded Confirmed Unobtainable 07/10/17 07/10/17 Review of Systems - Physician Review All systems were reviewed & negative as marked: Yes - Review of Systems Constitutional: absent: Fevers, Night Sweats Eyes: Vision Changes (blurred vision while seeing "floaters") Respiratory: Normal. absent: SOB, Cough, Sputum Cardiovascular: Normal. absent: Chest Pain, Palpitations, Calf Pain, Orthopnea , Syncope Gastrointestinal: Normal. absent: Abdominal Pain, Constipation, Diarrhea, Nausea, Vomiting Genitourinary Female: Normal. absent: Dysuria, Frequency, Hematuria Skin: Normal. absent: Rash, Pruritis Neurological: Headache (occipital), Other (numbness of right arm). absent: Dizziness, Focal Weakness, Speech Changes, Facial Droop, Disequilibrium, Seizure Psychiatric: Normal <Wilmer Dupree - Last Filed: 07/10/17 05:25> Physical Exam Vital Signs Reviewed: Yes Temperature: Afebrile Blood Pressure: Hypertensive Pulse: Regular Respiratory Rate: Normal Appearance: Positive for: Uncomfortable (patient crying, stating headache is pounding) Pain Distress: None Mental Status: Positive for: Alert and Oriented X 3 - Systems Exam Head: Present: Atraumatic, Normocephalic Pupils: Present: PERRL. No: Non-Reactive, Pinpoint Extroacular Muscles: Present: EOMI. No: Gaze Palsy Conjunctiva: Present: Injected (believed to be due to patient crying) Mouth: Present: Moist Mucous Membranes Nose (External): Present: Atraumatic Nose (Internal): Present: Normal Inspection, No Active Bleeding, Moist. No: Clear Mucous, Rhinorrhea Neck: Present: Normal Range of Motion. No: Meningeal Signs, MIDLINE TENDERNESS , Paraspinal Tenderness, JVD Respiratory/Chest: Present: Clear to Auscultation. No: Respiratory Distress, Accessory Muscle Use, Wheezes, Rhonchi Cardiovascular: Present: Regular Rate and Rhythm, Normal S1, S2, Peripheal Pulses Present. No: Murmurs Abdomen: Present: Tenderness (LUQ tender to deep palpation ), Normal Bowel Sounds. No: Distention, Peritoneal Signs, Guarding Upper Extremity: Present: Normal Inspection, Normal ROM, NORMAL PULSES, Capillary Refill < 2s. No: Cyanosis, Edema, Tenderness, Deformity Lower Extremity: Present: Normal Inspection, NORMAL PULSES, Normal ROM, Swelling , Capillary Refill < 2 s. No: CALF TENDERNESS, Jose's Sign, Tenderness, Deformity Neurological: Present: GCS=15, CN II-XII Intact, Speech Normal, Motor Func Grossly Intact Skin: Present: Warm, Dry, Normal Color. No: Diaphoretic Lymphatic: No: Cervical Adenopathy Psychiatric: Present: Alert, Oriented x 3, Normal Insight, Normal Concentration <Wilmer Dupree - Last Filed: 07/10/17 05:25> Vital Signs Temp Pulse Resp BP Pulse Ox 07/10/17 03:25 60 20 145/75 96 07/10/17 02:25 194/85 H 07/10/17 02:15 98.1 F 07/10/17 02:14 63 18 194/85 H 96 Medical Decision Making <Jair Mont[place] - Last Filed: 07/10/17 03:17> <Wilmer Dupree - Last Filed: 07/10/17 05:25> ED Course and Treatment: 07/10/17 03:17 Patient seen and evaluated with resident. Agree with HPI, clinical findings, plan and treatment. (Jair Montague) 07/10/17 02:59 Headache with elevated BP - Pt. given Clonidine 0.2mg PO, BP decrease to 156/71. Patient reported decreased pain and improving symptoms. - Head CT w/o - no acute bleed. unremarkable. - EKG - sinus bradycardia @53bpm, normal axis, new Twave inversions in leads V3-V5, old T wave inversions in leads I, aVL and V6 - CBC - unremarkable - CMP - AST 66/ALT 73 - Troponin - 0.02 negative - CK - 487 elevated - CK-MB - 4.3 elevated DISPO: Patient is to be admitted to hospital for uncontrolled HTN with headache and chest pain. Patient will be placed on telemetry for further evaluation. Dr. Martínez has accepted the patient to the Hospitalist service. (Wilmer Dupree) - Lab Interpretations Lab Results: 07/10/17 03:40 07/10/17 03:40 Lab Results 07/10/17 03:40: Sodium 143, Potassium 4.0, Chloride 105, Carbon Dioxide 29, Anion Gap 13, BUN 20, Creatinine 0.7, Est GFR ( Amer) > 60, Est GFR (Non- Af Amer) > 60, Random Glucose 122 H, Calcium 9.2, Total Bilirubin 0.4, AST 66 H , ALT 73 H, Alkaline Phosphatase 94, Lactate Dehydrogenase 568, Total Creatine Kinase 487 H, CK-MB (CK-2) 4.3 H, CK-MB (CK-2) % Cancelled, Troponin I 0.02 D, Total Protein 7.9, Albumin 4.1, Globulin 3.8, Albumin/Globulin Ratio 1.1 07/10/17 03:40: WBC 6.8, RBC 4.49, Hgb 13.8, Hct 41.3, MCV 92.0, MCH 30.7, MCHC 33.4, RDW 13.6, Plt Count 218, MPV 11.6 H, Gran % 69.6 H, Lymph % (Auto) 16.8 L , [place] % (Auto) 8.4 H, Eos % (Auto) 4.3, Baso % (Auto) 0.9, Gran # 4.73, Lymph # 1.1 L, [place] # 0.6, Eos # 0.3, Baso # 0.06 - RAD Interpretation Radiology Orders: 07/10/17 02:17 HEAD W/O CONTRAST [CT] Stat 07/10/17 04:04 CHEST PORTABLE [RAD] Stat - Medication Orders Current Medication Orders: Discontinued Medications Clonidine HCl (Catapres) 0.2 mg PO STAT STA Stop: 07/10/17 02:19 Last Admin: 07/10/17 02:25 Dose: 0.2 mg - PA / CONSERVATION TECHNICIAN / Resident Statement / has reviewed & agrees with the documentation as recorded. / has examined the patient and agrees with the treatment plan. <Jair Montague - Last Filed: 07/10/17 03:17> Disposition/Present on Arrival <Jair Montague - Last Filed: 07/10/17 03:17> - Present on Arrival Any Indicators Present on Arrival: No History of DVT/PE: No History of Uncontrolled Diabetes: No Urinary Catheter: No History of Decub. Ulcer: No History Surgical Site Infection Following: None - Disposition Have Diagnosis and Disposition been Completed?: Yes Disposition Time: 05:00 Patient Plan: Admission, Telemetry <Wilmer Dupree - Last Filed: 07/10/17 05:25> - Disposition Diagnosis: Uncontrolled hypertension, Headache, Chest pain Disposition: HOSPITALIZED Patient Problems: Current Active Problems Problem Status Onset Uncontrolled hypertension Acute Headache Acute Chest pain Acute Condition: FAIR Discharge Instructions (ExitCare): Chest Pain (ED) Referrals: PCP,NO [Primary Care Provider] - Follow up with primary Forms: [employer] ([employer])
[2017-07-10 04:12] LABS: ALB/GLOB RATIO 1.1 (1.1-1.8); ALKALINE PHOSPHATASE 94 U/L (38-126); ALT/SGPT 73 U/L (7-56); AST/SGOT 66 U/L (14-36); BILIRUBIN,TOTAL 0.4 mg/dL (0.2-1.3); BLOOD UREA NITROGEN 20 mg/dL (7-21); CALCIUM 9.2 mg/dL (8.4-10.5); CARBON DIOXIDE 29 mmol/L (21-33); CHLORIDE 105 mmol/L (98-107); GFR AFRICAN-AMERICAN > 60; GLUCOSE,RANDOM 122 mg/dL (70-110); SODIUM 143 mmol/L (132-148); TOTAL PROTEIN 7.9 g/dL (5.8-8.3)
[2017-07-10 04:23] LABS: TROPONIN I 0.02 ng/mL
[2017-07-10 04:35] LABS: BASO # 0.06 K/mm3 (0.0-2.0); BASO % 0.9 % (0.0-3.0); EOS # 0.3 (0.0-0.7); EOS % 4.3 % (1.5-5.0); GRAN # 4.73 (1.4-6.5); GRAN % 69.6 % (50.0-68.0); HEMATOCRIT 41.3 % (36.0-48.0); LYMPH # 1.1 (1.2-3.4); LYMPH % 16.8 % (22.0-35.0); MEAN CORPUSCULAR HEMOGLOBIN 30.7 pg (25.0-35.0); MEAN CORPUSCULAR HGB CONC 33.4 g/dl (31.0-37.0); MEAN PLATELET VOLUME 11.6 fl (7.0-11.0); MONO # 0.6 (0.1-0.6); MONO % 8.4 % (1.0-6.0); RED CELL DISTRIBUTION WIDTH 13.6 % (11.5-14.5); WHITE BLOOD COUNT 6.8 10^3/ul (4.5-11.0)
--- NOTE | 2017-07-10 05:10 | CP.PCM.HP ---
<ADELINA MENDOZA - Last Filed: 07/10/17 06:59> History of Present Illness - History of Present Illness History of Present Illness: Adelina Mendoza, PGY1, H&P for Dr. Martínez: CC: pounding headache x 7 hours [employer] HPI: 67F with PMH colon ca s/p resection, HTN, HLD, right sided carpel tunnel, presents for a pounding sensation in occipital region, waking her up at night, with BP 208/98. Pt described increasing right arm pain (2/2 carpel tunnel syndrome), which normally also elevates her BP. She also c/o substernal chest discomfort, nonradiating, dull, denies sob, palpitations. Pt also c/o blurred vision with floaters, and some nausea. Denies f/c, constipation, diarrhea, lightheadedness, dizziness, focal weakness, slurred speech. In Ed, pt hypertensive BP 194/85, received clonidine 0.2 mg POx1, which lowered her Bp to 156/71, eKG showed HR 53, S lilia, new T wave inversions in Leads V3-V5. Pending head CT and CXR results. Currently, pt is resting comfortably, denies any h/a, blurred vision, focal weakness, but does complain of worsening R arm numbness. Meds: seen as per Dr. Montes's note from 04/21/2017 Prev Hosp: 04/2017: lipoma excision PMH: Colon Cancer, HTN, HLD, right sided carpel tunnel PSH: gallbladder removal, colon resection Allergies: nitroglycercin FamHx: Father with unknown cancer, sister with breast CA Social: denies tobacco, alcohol and/or illicit drugs Present on Admission - Present on Admission Any Indicators Present on Admission: No History of DVT/PE: No History of Uncontrolled Diabetes: No Urinary Catheter: No Decubitus Ulcer Present: No History Surgical Site Infection Following: None Review of Systems - Review of Systems All systems: reviewed and no additional remarkable complaints except Review of Systems: as per hpi Past Patient History - Infectious Disease Hx of Infectious Diseases: None - Tetanus Immunizations Tetanus Immunization: Unknown - Past Social History Smoking Status: Never Smoked - CARDIAC Hx Hypertension: Yes - PULMONARY Hx Respiratory Disorders: No - NEUROLOGICAL Hx Neurological Disorder: No - HEENT Hx HEENT Problems: No - RENAL Hx Chronic Kidney Disease: No - ENDOCRINE/METABOLIC Hx Hypothyroidism: Yes - HEMATOLOGICAL/ONCOLOGICAL Hx Blood Disorders: (pt is rh negative) Hx Cancer: Yes (dx with colon ca 07/2002, no chemo, had resection) - INTEGUMENTARY Hx Dermatological Problems: No - MUSCULOSKELETAL/RHEUMATOLOGICAL Hx Musculoskeletal Disorders: No Hx Falls: No - GASTROINTESTINAL Hx Gastrointestinal Disorders: No - GENITOURINARY/GYNECOLOGICAL Hx Genitourinary Disorders: No - PSYCHIATRIC Hx Depression: No Hx Emotional Abuse: No Hx Physical Abuse: No Hx Substance Use: No - SURGICAL HISTORY Hx Orthopedic Surgery: Yes Other/Comment: fluid drained from cyst behind right knee. Colonoscopy/colon cancer 2001 - ANESTHESIA Hx Anesthesia: Yes Hx Anesthesia Reactions: Yes Hx Malignant Hyperthermia: No Meds Allergies/Adverse Reactions: Allergies Allergy/AdvReac Type Severity Reaction Status Date / Time nitroglycerin AdvReac ANAPHYLAXIS Verified 07/10/17 13:32 [From Nitro-Bid] Physical Exam - Constitutional Appears: No Acute Distress, Older Than Stated Age - Head Exam Head Exam: ATRAUMATIC, NORMOCEPHALIC - Eye Exam Eye Exam: PERRL. absent: Conjunctival injection, Scleral icterus Pupil Exam: PERRL. absent: Irregular, Unequal - ENT Exam ENT Exam: Mucous Membranes Moist - Neck Exam Neck exam: Negative for: Lymphadenopathy, Thyromegaly - Respiratory Exam Respiratory Exam: Clear to Auscultation Bilateral, NORMAL BREATHING PATTERN. absent: Accessory Muscle Use, Chest Wall Tenderness, Rales, Rhonchi, Wheezes - Cardiovascular Exam Cardiovascular Exam: RRR, +S1, +S2. absent: Tachycardia, Systolic Murmur - GI/Abdominal Exam GI & Abdominal Exam: Distended, Normal Bowel Sounds, Soft. absent: Guarding, Rebound - Extremities Exam Extremities exam: Positive for: calf tenderness, pedal pulses present. Negative for: pedal edema Additional comments: + right calf tenderness; no swelling/erythema/increase in calf diameter. Negative Jose's sign. - Back Exam Back exam: absent: CVA tenderness (L), CVA tenderness (R) - Neurological Exam Neurological exam: Alert, CN II-XII Intact, Oriented x3, Reflexes Normal - Psychiatric Exam Psychiatric exam: Normal Mood - Skin Skin Exam: Dry, Warm Results - Vital Signs Recent Vital Signs: Last Vital Signs Temp 98.1 F 07/10/17 02:15 Pulse 60 07/10/17 03:25 Resp 20 07/10/17 03:25 BP 145/75 07/10/17 03:25 Pulse Ox 96 07/10/17 03:25 - Labs Result Diagrams: 07/10/17 03:40 07/10/17 03:40 Labs: Laboratory Results - last 24 hr 07/10/17 07/10/17 03:40 03:40 WBC 6.8 RBC 4.49 Hgb 13.8 Hct 41.3 MCV 92.0 MCH 30.7 MCHC 33.4 RDW 13.6 Plt Count 218 MPV 11.6 H Gran % 69.6 H Lymph % (Auto) 16.8 L [place] % (Auto) 8.4 H Eos % (Auto) 4.3 Baso % (Auto) 0.9 Gran # 4.73 Lymph # 1.1 L [place] # 0.6 Eos # 0.3 Baso # 0.06 Sodium 143 Potassium 4.0 Chloride 105 Carbon Dioxide 29 Anion Gap 13 BUN 20 Creatinine 0.7 Est GFR ( Amer) > 60 Est GFR (Non-Af Amer) > 60 Random Glucose 122 H Calcium 9.2 Total Bilirubin 0.4 AST 66 H ALT 73 H Alkaline Phosphatase 94 Lactate Dehydrogenase 568 Total Creatine Kinase 487 H CK-MB (CK-2) 4.3 H CK-MB (CK-2) % Cancelled Troponin I 0.02 D Total Protein 7.9 Albumin 4.1 Globulin 3.8 Albumin/Globulin Ratio 1.1 Assessment & Plan - Assessment and Plan (Free Text) Assessment: 67F with PMH HTN, right sided carpal tunnel, presents with HTN emergency. Plan: HTN emergency: - Pt's BP 194/85, pt symptomatic with a pounding occipital headache, bluerred vision with floaters, + chest discomfort - Received Clonidine 0.2 mg PO x1 in Ed, with improvemnt of BP and symptoms - Pt on home HCTZ 25 mg PO daily, states she is compliant - Started on home HCTZ, hydralazine prn; - Pt c/o r arm numbness, 2/2 carpel tunnel pain, which exacerbates her BP; started on morphine prn severe pain - f/u serial trops with ekg, head ct and cxr - f/u cardio c/s, recs R calf tenderness: - r/o DVT with duplex LE Hx of hypothyroidisim; - C/w home synthroid - f/u tsh R arm caprel tunnel: - Consider outpt f/u; splint? Discussed with Dr Martínez. Adelina Mendoza PGY1 - Date & Time Date: 07/10/17 Time: 07:18 <Keanu Martínez - Last Filed: 07/11/17 00:32> Results - Vital Signs Recent Vital Signs: Last Vital Signs Temp 97.4 F L 07/10/17 18:00 Pulse 54 L 07/10/17 22:00 Resp 20 07/10/17 14:18 BP 119/42 L 07/10/17 14:18 Pulse Ox 98 07/10/17 06:26 - Labs Result Diagrams: 07/10/17 03:40 07/10/17 03:40 Labs: Laboratory Results - last 24 hr 07/10/17 07/10/17 07/10/17 09:50 09:50 09:50 PT INR APTT D-Dimer, Quantitative Lactate Dehydrogenase 509 Total Creatine Kinase 419 H CK-MB (CK-2) 3.8 H CK-MB (CK-2) % Cancelled Troponin I < 0.01 D Free T4 TSH 3rd Generation 5.53 H Hepatitis A IgM Ab Negative Hep Bs Antigen Negative Hep B Core IgM Ab Negative Hepatitis C Antibody Negative 07/10/17 07/10/17 07/10/17 17:00 17:00 17:00 PT 10.6 INR 0.98 APTT 28.0 D-Dimer, Quantitative 0.65 H Lactate Dehydrogenase 542 Total Creatine Kinase 344 H CK-MB (CK-2) 3.0 CK-MB (CK-2) % Cancelled Troponin I < 0.01 Free T4 0.86 TSH 3rd Generation Hepatitis A IgM Ab Hep Bs Antigen Hep B Core IgM Ab Hepatitis C Antibody 07/10/17 21:45 PT INR APTT D-Dimer, Quantitative Lactate Dehydrogenase 493 Total Creatine Kinase 274 H CK-MB (CK-2) 2.6 CK-MB (CK-2) % Cancelled Troponin I < 0.01 Free T4 TSH 3rd Generation Hepatitis A IgM Ab Hep Bs Antigen Hep B Core IgM Ab Hepatitis C Antibody Attending/Attestation - Attestation I have personally seen and examined this patient.: Yes I have fully participated in the care of the patient.: Yes I have reviewed all pertinent clinical information: Yes
[2017-07-10] MEDS: Levothyroxine 25 MCG TAB PO SCH (06:23)
[2017-07-10] MEDS ORDERED: Morphine 4 mg/ml ISec IVP PRN (06:26)
[2017-07-10] MEDS: Morphine 2 mg/ml ISec IVP PRN ×4 (06:47→20:45)
--- NOTE | 2017-07-10 08:10 | CT ---
PROCEDURE: CT HEAD WITHOUT CONTRAST. HISTORY: High BP w/headache and right arm numbness COMPARISON: None available. TECHNIQUE: Axial computed tomography images were obtained through the head/brain without intravenous contrast. Radiation dose: Total exam DLP = 712 mGy-cm. This CT exam was performed using one or more of the following dose reduction techniques: Automated exposure control, adjustment of the mA and/or kV according to patient size, and/or use of iterative reconstruction technique. FINDINGS: HEMORRHAGE: No intracranial hemorrhage. BRAIN: No mass effect or edema. No atrophy or chronic microvascular ischemic changes. VENTRICLES: Unremarkable. No hydrocephalus. CALVARIUM: Unremarkable. PARANASAL SINUSES: Unremarkable as visualized. No significant inflammatory changes. MASTOID AIR CELLS: Unremarkable as visualized. No inflammatory changes. OTHER FINDINGS: None. IMPRESSION: No acute findings
--- NOTE | 2017-07-10 09:15 | RAD ---
HISTORY: pain COMPARISON: 04/21/2017 FINDINGS: LUNGS: No active pulmonary disease. PLEURA: No significant pleural effusion identified, no pneumothorax apparent. CARDIOVASCULAR: Mild cardiomegaly and mild vascular congestion OSSEOUS STRUCTURES: No significant abnormalities. VISUALIZED UPPER ABDOMEN: Normal. OTHER FINDINGS: None. IMPRESSION: Mild cardiomegaly and mild vascular congestion
[2017-07-10] MEDS: Enoxaparin 40 mg Syringe SC SCH (09:25)
[2017-07-10 10:25] LABS: TROPONIN I < 0.01 ng/mL
[2017-07-10] MEDS ORDERED: Pneumococcal 23-Valent Vaccine IM ONE (14:53)
[2017-07-10 14:54] VITALS: BMI 40.3
--- NOTE | 2017-07-10 16:52 | CARD ---
APPROVED REPORT EKG Measurement Heart [id number] ND 168P4 [id number] <Conclusion> Sinus bradycardia with sinus arrhythmia T wave abnormality, consider anterolateral ischemia Abnormal ECG
--- NOTE | 2017-07-10 17:13 | CARD ---
APPROVED REPORT EKG Measurement Heart [id number] VT 152P51 [id number] <Conclusion> Sinus bradycardia T wave abnormality, consider anterolateral ischemia Abnormal ECG
[2017-07-10 17:29] LABS: INR 0.98 (0.93-1.08)
[2017-07-10 17:45] LABS: TROPONIN I < 0.01 ng/mL
--- NOTE | 2017-07-10 17:49 | CARD ---
APPROVED REPORT EKG Measurement Heart [id number] AR 156P13 [id number] <Conclusion> Sinus bradycardia T wave abnormality, consider anterolateral ischemia Abnormal ECG
[2017-07-10 18:06] LABS: D DIMER 0.65 mg/L FEU (0-0.50)
[2017-07-10 22:33] LABS: TROPONIN I < 0.01 ng/mL
--- NOTE | 2017-07-10 23:11 | CON ---
CARDIOLOGY CONSULT REASON FOR CONSULTATION: Uncontrolled hypertension, abnormal EKG. HISTORY OF PRESENT ILLNESS: The patient is a 67-year-old female who has a history of hypertension, history of colon cancer, status post resection and history of right carpel tunnel syndrome. She presented because of uncontrolled hypertension. The patient attributes the high blood pressure to recurring right wrist pain, positive for carpal tunnel syndrome that awakens her from sleep. The patient does report stiffness of the right arm and hand at times with inability to move or have a good grasp with her right hand. The patient denies any history of stroke in the past. SOCIAL HISTORY: Nonsmoker, nondrinker. PAST MEDICAL HISTORY: History of colon resection for colon cancer, history of cholecystectomy. MEDICATIONS: Hydralazine 10 mg IV push q.6 hours p.r.n., aspirin 81 mg once a day, hydrochlorothiazide 25 mg once a day, Lipitor 80 mg once a day, Lovenox 40 mg subcutaneous once a day, Synthroid 25 mcg daily, morphine sulfate 2 mg q.4 hours p.r.n. REVIEW OF SYSTEMS: No nausea or vomiting. The patient does use a walking cane. Denies any history of recent fall. PHYSICAL EXAMINATION GENERAL: The patient is an elderly female who does not appear to be any distress. VITAL SIGNS: Blood pressure 119/63, heart rate 54, temperature 98.1, respirations 20. HEENT: Normocephalic. NECK: No JVD. CHEST: Clear. HEART: S1 and S2 regular. ABDOMEN: Soft. EXTREMITIES: 1+ pitting edema. LABORATORY DATA: Hemoglobin and hematocrit are 13.8 and 41.3. White count and platelet count are within normal limits. SMA-7 is within normal limits except for glucose of 122. Two sets of troponins are not elevated. TSH level is elevated at 5.53. Total CPK is mildly elevated. EKG revealed sinus bradycardia at the rate 42, consider anterolateral ischemic T-wave inversion. The T-wave inversion was noted on previous EKGs on I and aVL mostly. Recent echocardiograph study performed in April of this year revealed mild concentric LVH with normal ejection fraction and grade 1 abnormal relaxation method with normal symmetric wall motion. ASSESSMENT: 1. Abnormal EKG with evidence of lateral ischemia. 2. Mild sinus bradycardia. 3. Hypertension. 4, Hypothyroidism which is uncontrolled which is probably reason for the patient's sinus bradycardia. RECOMMENDATION: Continue hydralazine 10 mg IV p.r.n., continue aspirin 81 mg once a day, hydrochlorothiazide 25 mg once a day, Lipitor 80 mg once a day, subcutaneous Lovenox at 40 mg once a day, Synthroid 25 mcg once a day. Obtain PT, PTT and D-dimer. The patient denies chest pain and does not want to go through an experience of stress test, which she had experienced in 2013 at [facility] with a negative stress test. For now, the patient can be treated medically. Case was discussed with . Samm Montes MD
[2017-07-11] MEDS: Morphine 2 mg/ml ISec IVP PRN ×2 (01:31→05:22)
[2017-07-11] MEDS: Levothyroxine 25 MCG TAB PO SCH (06:29)
--- NOTE | 2017-07-11 08:09 | CP.PCM.DIS ---
Provider - Provider Date of Admission: 07/10/17 05:21 Attending physician: Ector West MD Primary care physician: NO PRIMARY CARE PROVIDER Hospital Course - Lab Results Lab Results: Most Recent Lab Values WBC 6.8 10^3/ul (4.5-11.0) 07/10/17 03:40 RBC 4.49 10^6/uL (3.5-6.1) 07/10/17 03:40 Hgb 13.8 g/dL (12.0-16.0) 07/10/17 03:40 Hct 41.3 % (36.0-48.0) 07/10/17 03:40 MCV 92.0 fl (80.0-105.0) 07/10/17 03:40 MCH 30.7 pg (25.0-35.0) 07/10/17 03:40 MCHC 33.4 g/dl (31.0-37.0) 07/10/17 03:40 RDW 13.6 % (11.5-14.5) 07/10/17 03:40 Plt Count 218 10^3/uL (120.0-450.0) 07/10/17 03:40 MPV 11.6 fl (7.0-11.0) H 07/10/17 03:40 Gran % 69.6 % (50.0-68.0) H 07/10/17 03:40 Lymph % (Auto) 16.8 % (22.0-35.0) L 07/10/17 03:40 [place] % (Auto) 8.4 % (1.0-6.0) H 07/10/17 03:40 Eos % (Auto) 4.3 % (1.5-5.0) 07/10/17 03:40 Baso % (Auto) 0.9 % (0.0-3.0) 07/10/17 03:40 Gran # 4.73 (1.4-6.5) 07/10/17 03:40 Lymph # 1.1 (1.2-3.4) L 07/10/17 03:40 [place] # 0.6 (0.1-0.6) 07/10/17 03:40 Eos # 0.3 (0.0-0.7) 07/10/17 03:40 Baso # 0.06 K/mm3 (0.0-2.0) 07/10/17 03:40 PT 10.6 Seconds (9.9-11.8) 07/10/17 17:00 INR 0.98 (0.93-1.08) 07/10/17 17:00 APTT 28.0 Seconds (23.7-30.8) 07/10/17 17:00 D-Dimer, Quantitative 0.65 mg/L FEU (0-0.50) H 07/10/17 17:00 Sodium 143 mmol/L (132-148) 07/10/17 03:40 Potassium 4.0 mmol/L (3.6-5.0) 07/10/17 03:40 Chloride 105 mmol/L (98-107) 07/10/17 03:40 Carbon Dioxide 29 mmol/L (21-33) 07/10/17 03:40 Anion Gap 13 (10-20) 07/10/17 03:40 BUN 20 mg/dL (7-21) 07/10/17 03:40 Creatinine 0.7 mg/dL (0.5-1.4) 07/10/17 03:40 Est GFR ( Amer) > 60 07/10/17 03:40 Est GFR (Non-Af Amer) > 60 07/10/17 03:40 Random Glucose 122 mg/dL (70-110) H 07/10/17 03:40 Calcium 9.2 mg/dL (8.4-10.5) 07/10/17 03:40 Total Bilirubin 0.4 mg/dL (0.2-1.3) 07/10/17 03:40 AST 66 U/L (14-36) H 07/10/17 03:40 ALT 73 U/L (7-56) H 07/10/17 03:40 Alkaline Phosphatase 94 U/L (38-126) 07/10/17 03:40 Lactate Dehydrogenase 493 U/L (333-699) 07/10/17 21:45 Total Creatine Kinase 274 U/L (35-230) H 07/10/17 21:45 CK-MB (CK-2) 2.6 ng/mL (0.0-3.6) 07/10/17 21:45 CK-MB (CK-2) % Cancelled 07/10/17 03:40 Troponin I < 0.01 ng/mL 07/10/17 21:45 Total Protein 7.9 g/dL (5.8-8.3) 07/10/17 03:40 Albumin 4.1 g/dL (3.0-4.8) 07/10/17 03:40 Globulin 3.8 gm/dL 07/10/17 03:40 Albumin/Globulin Ratio 1.1 (1.1-1.8) 07/10/17 03:40 Free T4 0.86 ng/dL (0.78-2.19) 07/10/17 17:00 TSH 3rd Generation 5.53 mIU/mL (0.46-4.68) H 07/10/17 09:50 Hepatitis A IgM Ab Negative (NEGATIVE) 07/10/17 09:50 Hep Bs Antigen Negative (NEGATIVE) 07/10/17 09:50 Hep B Core IgM Ab Negative (NEGATIVE) 07/10/17 09:50 Hepatitis C Antibody Negative (NEGATIVE) 07/10/17 09:50 Discharge Exam - Head Exam Head Exam: ATRAUMATIC, NORMOCEPHALIC Discharge Plan - Follow Up Plan Condition: FAIR Disposition: HOME/ ROUTINE Referrals: PCP,NO [Primary Care Provider] -
[2017-07-11 09:27] LABS: ALB/GLOB RATIO 1.1 (1.1-1.8); ALKALINE PHOSPHATASE 86 U/L (38-126); ALT/SGPT 69 U/L (7-56); AST/SGOT 80 U/L (14-36); BILIRUBIN,TOTAL 0.7 mg/dL (0.2-1.3); BLOOD UREA NITROGEN 17 mg/dL (7-21); CALCIUM 8.9 mg/dL (8.4-10.5); CARBON DIOXIDE 28 mmol/L (21-33); CHLORIDE 102 mmol/L (98-107); GFR AFRICAN-AMERICAN > 60; GLUCOSE,RANDOM 150 mg/dL (70-110); SODIUM 141 mmol/L (132-148); TOTAL PROTEIN 8.1 g/dL (5.8-8.3)
[2017-07-11] MEDS ORDERED: Iodixanol 320 MG/ML 100 ML BOTTLE IV ONE (10:35)
[2017-07-11] MEDS: Enoxaparin 40 mg Syringe SC SCH ×2 (10:57→11:03)
[2017-07-11] MEDS: Sodium Chloride 0.9% 1,000 ML IV SCH ×2 (10:58→21:38)
--- NOTE | 2017-07-11 11:56 | CP.PCM.PN ---
<Eunice Griffin - Last Filed: 07/11/17 21:33> Subjective - Date & Time of Evaluation Date of Evaluation: 07/11/17 Time of Evaluation: 11:55 - Subjective Subjective: Eunice Griffin DO, PGY-1, Hospitalist Service Patient seen and examined at bedside. Patient admits to chest discomfort and right arm pain. Patient denies nausea, vomiting, and diaphoresis. Blood pressure is well-controlled. Objective - Vital Signs/Intake and Output Vital Signs (last 24 hours): Temp Pulse Resp BP Pulse Ox 98.3 F 45 L 12 127/52 L 94 L 07/11/17 06:00 07/11/17 07:50 07/11/17 07:50 07/11/17 07:00 07/11/17 07:50 - Medications Medications: Current Medications Aspirin (Aspirin Chewable) 81 mg PO DAILY [facility] Last Admin: 07/11/17 10:57 Dose: 81 mg Atorvastatin Calcium (Lipitor) 80 mg PO DIN [facility] Last Admin: 07/10/17 17:24 Dose: 80 mg Cyclobenzaprine HCl (Flexeril) 5 mg PO Q8H PRN PRN Reason: Muscle spasm Enoxaparin Sodium (Lovenox) 40 mg SC DAILY [facility] PRN Reason: Protocol Last Admin: 07/11/17 11:03 Dose: Not Given Hydralazine HCl (Apresoline) 10 mg IVP Q6H PRN PRN Reason: Systolic Blood Pressure Hydrochlorothiazide (Hydrodiuril) 25 mg PO DAILY [facility] Last Admin: 07/11/17 10:57 Dose: 25 mg Sodium Chloride (Sodium Chloride 0.9%) 1,000 mls @ 90 mls/hr IV .Q11H7M [facility] Last Admin: 07/11/17 10:58 Dose: 90 mls/hr Levothyroxine Sodium (Synthroid) 25 mcg PO 0600 [facility] Last Admin: 07/11/17 06:29 Dose: 25 mcg - Labs Labs: 07/11/17 09:00 PT 10.6 Seconds (9.9-11.8) 07/10/17 17:00 INR 0.98 (0.93-1.08) 07/10/17 17:00 APTT 28.0 Seconds (23.7-30.8) 07/10/17 17:00 Assessment and Plan - Assessment and Plan (Free Text) Assessment: 67 year old female with a past medical history of carpal tunnel of the right arm , hypertension, morbid obesity, who presented to [facility] for a hypertensive urgency , GARCIA, visual changes, and right arm pain. Plan: 1) Hypertensive Urgency - Patient's denies any headache, visual disturbances, or right arm pain - Patient's blood pressure is well controlled on current regiment. - troponin (-) x3, CXR showed no active disease -CT head showed no acute changes 2) mildly elevated D-dimer - CT PE protocol (-) for PE 3) Suspected/Rule out CAD: -Lovenox, aspirin, and lipitor Dr. Montes plans for left heart cath tomorrow - Last stress test was read as normal 4) Hypothyroidism - C/W 125 mcg of Levothyroxine 5) Mildly elevated LFTs - Viral Hepatitis panel (-) <Ector West - Last Filed: 07/12/17 11:36> Objective - Vital Signs/Intake and Output Vital Signs (last 24 hours): Temp Pulse Resp BP Pulse Ox 97.9 F 55 L 20 121/56 L 95 07/12/17 06:00 07/12/17 06:00 07/12/17 06:00 07/12/17 06:00 07/11/17 21:10 Intake and Output: 07/12/17 07/12/17 06:59 18:59 Intake Total 180 Balance 180 - Medications Medications: Current Medications Aspirin (Aspirin Chewable) 81 mg PO DAILY [facility] Last Admin: 07/12/17 10:06 Dose: 81 mg Atorvastatin Calcium (Lipitor) 80 mg PO DIN [facility] Last Admin: 07/11/17 17:33 Dose: 80 mg Cyclobenzaprine HCl (Flexeril) 5 mg PO Q8H PRN PRN Reason: Muscle spasm Last Admin: 07/12/17 05:19 Dose: 5 mg Enoxaparin Sodium (Lovenox) 40 mg SC DAILY [facility] PRN Reason: Protocol Last Admin: 07/12/17 10:07 Dose: 40 mg Hydrochlorothiazide (Hydrodiuril) 25 mg PO DAILY [facility] Last Admin: 07/12/17 10:06 Dose: 25 mg Sodium Chloride (Sodium Chloride 0.9%) 1,000 mls @ 90 mls/hr IV .Q11H7M [facility] Last Admin: 07/11/17 21:38 Dose: Not Given Levothyroxine Sodium (Synthroid) 125 mcg PO DAILY [facility] Last Admin: 07/12/17 10:06 Dose: 125 mcg - Labs Labs: 07/12/17 05:50 07/12/17 05:50 PT 10.6 Seconds (9.9-11.8) 07/10/17 17:00 INR 0.98 (0.93-1.08) 07/10/17 17:00 APTT 28.0 Seconds (23.7-30.8) 07/10/17 17:00 - Constitutional Appears: Well, No Acute Distress - Eye Exam Eye Exam: EOMI - ENT Exam ENT Exam: Normal Exam - Respiratory Exam Respiratory Exam: Clear to Ausculation Bilateral - Cardiovascular Exam Cardiovascular Exam: REGULAR RHYTHM, +S1, +S2 - GI/Abdominal Exam GI & Abdominal Exam: Soft, Normal Bowel Sounds. absent: Tenderness, Organomegaly - Extremities Exam Extremities Exam: Normal Inspection - Neurological Exam Neurological Exam: Alert, Awake, Oriented x3 Attending/Attestation - Attestation I have personally seen and examined this patient.: Yes I have fully participated in the care of the patient.: Yes I have reviewed all pertinent clinical information, including history, physical exam and plan: Yes Notes (Text): 07/11/17 67 year old female with past medical history of carpal tunnel syndrome and hypertension who presented with hypertensive urgency (resolved) and chest pain with EKG changes. Cardiology is following the patient and plan is for possible cardiac cath tomorrow. D-dimer was elevated however CT angio was negative for PE. Continue with aspirin and statin. She is also on synthroid for hypothyroidism. LFTs are chronically elevated. Hepatitis panel was negative. Recommended close outpatient follow up. Ector West MD Hospitalist.
--- NOTE | 2017-07-11 12:01 | CT ---
PROCEDURE: CT Chest with contrast (Pulmonary Angiogram) HISTORY: elevated D-dimer COMPARISON: None available. TECHNIQUE: Axial computed tomography images were obtained of the chest in the pulmonary arterial phase of enhancement. Coronal and sagittal reformatted images were created and reviewed. Intravenous contrast dose: 100 mL Visipaque 320 Radiation dose: Total exam DLP = 827.37 mGy-cm. This CT exam was performed using one or more of the following dose reduction techniques: Automated exposure control, adjustment of the mA and/or kV according to patient size, and/or use of iterative reconstruction technique. FINDINGS: PULMONARY ARTERIES: Evaluation technically limited due to patient body habitus. No evidence of pulmonary embolism in the main, lobar and segmental pulmonary artery branches. Subsegmental pulmonary artery branches are inadequately evaluated. AORTA: No acute findings. No thoracic aortic aneurysm. LUNGS: 9 mm rounded ground-glass opacity in the posterior segment, right upper lobe (series 6, image 43 and 44). In retrospect, this is unchanged compared to prior examination. No other pulmonary mass or opacity is identified. There is mild mosaic attenuation noted bilaterally, nonspecific. PLEURAL SPACES: Unremarkable. No effusion or pneuomothorax. HEART: Unremarkable. No cardiomegaly. No significant pericardial effusion. LYMPH NODES: No lymphadenopathy. BONES, CHEST WALL: Unremarkable. No fracture or destructive lesion OTHER FINDINGS: Unremarkable. IMPRESSION: No evidence of pulmonary embolism. Examination technically limited for evaluation of subsegmental pulmonary artery branches, however. 9 mm ground-glass opacity in posterior segment right upper lobe, stable compared to prior examination. Followup with noncontrast chest CT in 6-12 months is advised as per Fleischner society criteria.
--- NOTE | 2017-07-11 13:10 | PN ---
DATE: SUBJECTIVE: The patient denies any chest pain. She has had experiencing the right wrist pain. PHYSICAL EXAMINATION: VITAL SIGNS: Blood pressure 98.3, heart rate 44, and respirations 14. HEENT: Normocephalic. CHEST: Clear. HEART: S1 and S2 regular. EXTREMITIES: No edema. LABORATORY DATA: SMA-7 is within normal limits except for glucose of 150. AST and ALT are 80 and 69 respectively. D-dimer is 0.65. Lower extremity ultrasound, no sonographic evidence of DVT. ASSESSMENT: 1. Hypertension. 2. Left ischemic EKG changes. 3. Hypothyroidism and sinus bradycardia. RECOMMENDATION: Continue aspirin 81 mg once day, hydrochlorothiazide 25 mg once a day, Lipitor 80 mg once a day, Lovenox 40 mg once a day, normal saline 90 mL an hour, Synthroid 25 mcg once a day. The patient will undergo CT angio of the chest today and will be scheduled for cardiac catheterization tomorrow morning. Samm Montes MD
[2017-07-12] MEDS: Sodium Chloride 0.45% 500 ML IV SCH (02:45)
[2017-07-12] MEDS ORDERED: Levothyroxine 50 MCG TAB PO SCH (06:00)
[2017-07-12 06:42] LABS: BASO # 0.04 K/mm3 (0.0-2.0); BASO % 0.6 % (0.0-3.0); EOS # 0.2 (0.0-0.7); EOS % 3.2 % (1.5-5.0); GRAN # 4.87 (1.4-6.5); GRAN % 71.3 % (50.0-68.0); HEMATOCRIT 42.2 % (36.0-48.0); LYMPH # 1.2 (1.2-3.4); LYMPH % 17.9 % (22.0-35.0); MEAN CELL VOLUME 91.5 fl (80.0-105.0); MEAN CORPUSCULAR HEMOGLOBIN 30.6 pg (25.0-35.0); MEAN CORPUSCULAR HGB CONC 33.4 g/dl (31.0-37.0); MEAN PLATELET VOLUME 11.2 fl (7.0-11.0); MONO # 0.5 (0.1-0.6); RED CELL DISTRIBUTION WIDTH 13.5 % (11.5-14.5); WHITE BLOOD COUNT 6.8 10^3/ul (4.5-11.0)
[2017-07-12 07:01] LABS: ALKALINE PHOSPHATASE 82 U/L (38-126); ALT/SGPT 77 U/L (7-56); AST/SGOT 60 U/L (14-36); BILIRUBIN,TOTAL 0.6 mg/dL (0.2-1.3); BLOOD UREA NITROGEN 15 mg/dL (7-21); CALCIUM 8.8 mg/dL (8.4-10.5); CARBON DIOXIDE 31 mmol/L (21-33); CHLORIDE 103 mmol/L (98-107); GFR AFRICAN-AMERICAN > 60; GLUCOSE,RANDOM 111 mg/dL (70-110); POTASSIUM 3.9 mmol/L (3.6-5.0); SODIUM 142 mmol/L (132-148); TOTAL PROTEIN 7.7 g/dL (5.8-8.3)
[2017-07-12] MEDS: Levothyroxine 125 MCG TAB PO SCH (10:06)
[2017-07-12] MEDS: Enoxaparin 40 mg Syringe SC SCH (10:07)
[2017-07-12] MEDS ORDERED: Lidocaine 2% Inj (20ml) ONE (11:10)
[2017-07-12] MEDS ORDERED: Iodixanol 320 MG/ML 200 ML BOTTLE IV ONE (11:10)
[2017-07-12] MEDS ORDERED: Midazolam 2 MG/2 ML VIAL ONE (11:33)
--- NOTE | 2017-07-12 16:12 | CP.PCM.DIS ---
Provider - Provider Date of Admission: 07/11/17 13:06 Attending physician: David Chavez MD Primary care physician: NO PRIMARY CARE PROVIDER Hospital Course - Lab Results Lab Results: Most Recent Lab Values WBC 6.8 10^3/ul (4.5-11.0) 07/12/17 05:50 RBC 4.61 10^6/uL (3.5-6.1) 07/12/17 05:50 Hgb 14.1 g/dL (12.0-16.0) 07/12/17 05:50 Hct 42.2 % (36.0-48.0) 07/12/17 05:50 MCV 91.5 fl (80.0-105.0) 07/12/17 05:50 MCH 30.6 pg (25.0-35.0) 07/12/17 05:50 MCHC 33.4 g/dl (31.0-37.0) 07/12/17 05:50 RDW 13.5 % (11.5-14.5) 07/12/17 05:50 Plt Count 222 10^3/uL (120.0-450.0) 07/12/17 05:50 MPV 11.2 fl (7.0-11.0) H 07/12/17 05:50 Gran % 71.3 % (50.0-68.0) H 07/12/17 05:50 Lymph % (Auto) 17.9 % (22.0-35.0) L 07/12/17 05:50 [place] % (Auto) 7.0 % (1.0-6.0) H 07/12/17 05:50 Eos % (Auto) 3.2 % (1.5-5.0) 07/12/17 05:50 Baso % (Auto) 0.6 % (0.0-3.0) 07/12/17 05:50 Gran # 4.87 (1.4-6.5) 07/12/17 05:50 Lymph # 1.2 (1.2-3.4) 07/12/17 05:50 [place] # 0.5 (0.1-0.6) 07/12/17 05:50 Eos # 0.2 (0.0-0.7) 07/12/17 05:50 Baso # 0.04 K/mm3 (0.0-2.0) 07/12/17 05:50 PT 10.6 Seconds (9.9-11.8) 07/10/17 17:00 INR 0.98 (0.93-1.08) 07/10/17 17:00 APTT 28.0 Seconds (23.7-30.8) 07/10/17 17:00 D-Dimer, Quantitative 0.65 mg/L FEU (0-0.50) H 07/10/17 17:00 Sodium 142 mmol/L (132-148) 07/12/17 05:50 Potassium 3.9 mmol/L (3.6-5.0) 07/12/17 05:50 Chloride 103 mmol/L (98-107) 07/12/17 05:50 Carbon Dioxide 31 mmol/L (21-33) 07/12/17 05:50 Anion Gap 12 (10-20) 07/12/17 05:50 BUN 15 mg/dL (7-21) 07/12/17 05:50 Creatinine 0.7 mg/dL (0.5-1.4) 07/12/17 05:50 Est GFR ( Amer) > 60 07/12/17 05:50 Est GFR (Non-Af Amer) > 60 07/12/17 05:50 Random Glucose 111 mg/dL (70-110) H 07/12/17 05:50 Calcium 8.8 mg/dL (8.4-10.5) 07/12/17 05:50 Total Bilirubin 0.6 mg/dL (0.2-1.3) 07/12/17 05:50 AST 60 U/L (14-36) H D 07/12/17 05:50 ALT 77 U/L (7-56) H 07/12/17 05:50 Alkaline Phosphatase 82 U/L (38-126) 07/12/17 05:50 Lactate Dehydrogenase 493 U/L (333-699) 07/10/17 21:45 Total Creatine Kinase 274 U/L (35-230) H 07/10/17 21:45 CK-MB (CK-2) 2.6 ng/mL (0.0-3.6) 07/10/17 21:45 CK-MB (CK-2) % Cancelled 07/10/17 03:40 Troponin I < 0.01 ng/mL 07/10/17 21:45 Total Protein 7.7 g/dL (5.8-8.3) 07/12/17 05:50 Albumin 3.9 g/dL (3.0-4.8) 07/12/17 05:50 Globulin 3.8 gm/dL 07/12/17 05:50 Albumin/Globulin Ratio 1.0 (1.1-1.8) L 07/12/17 05:50 Free T4 0.86 ng/dL (0.78-2.19) 07/10/17 17:00 TSH 3rd Generation 5.53 mIU/mL (0.46-4.68) H 07/10/17 09:50 Hepatitis A IgM Ab Negative (NEGATIVE) 07/10/17 09:50 Hep Bs Antigen Negative (NEGATIVE) 07/10/17 09:50 Hep B Core IgM Ab Negative (NEGATIVE) 07/10/17 09:50 Hepatitis C Antibody Negative (NEGATIVE) 07/10/17 09:50 Discharge Exam - Head Exam Head Exam: ATRAUMATIC, NORMOCEPHALIC Discharge Plan - Follow Up Plan Condition: FAIR Disposition: HOME/ ROUTINE Instructions: Hypertension (DC), Hypertension (GEN) Additional Instructions: 1) Continue to monitor blood pressure at home. Do not take Nifedipine if systolic blood pressure is below 110 mm Hg. 2) Please see your PMD, Dr. Geiger, within one week of discharge. 3) Please take any prescribed medications as directed. 4) Please recheck TSH after 6 weeks of discharge date. Referrals: PCP,NO [Primary Care Provider] -
--- NOTE | 2017-07-12 17:05 | CP.PCM.PN ---
<Eunice Griffin - Last Filed: 07/12/17 17:25> Subjective - Date & Time of Evaluation Date of Evaluation: 07/12/17 Time of Evaluation: 17:02 - Subjective Subjective: Eunice Griffin DO, PGY-1, Hospitalist Service Patient seen and examined with present. acts as the mop maker. Patient is lying flat. There was bleeding at the groin site. Patient reports discomfort in the right groin. Objective - Vital Signs/Intake and Output Vital Signs (last 24 hours): Temp Pulse Resp BP Pulse Ox 99.5 F 54 L 20 146/98 H 95 07/12/17 11:47 07/12/17 16:25 07/12/17 16:25 07/12/17 16:25 07/11/17 21:10 Intake and Output: 07/12/17 07/12/17 06:59 18:59 Intake Total 180 Balance 180 - Medications Medications: Current Medications Aspirin (Aspirin Chewable) 81 mg PO DAILY [facility] Last Admin: 07/12/17 10:06 Dose: 81 mg Atorvastatin Calcium (Lipitor) 80 mg PO DIN [facility] Last Admin: 07/12/17 16:33 Dose: 80 mg Cyclobenzaprine HCl (Flexeril) 5 mg PO Q8H PRN PRN Reason: Muscle spasm Last Admin: 07/12/17 05:19 Dose: 5 mg Enoxaparin Sodium (Lovenox) 40 mg SC DAILY [facility] PRN Reason: Protocol Last Admin: 07/12/17 10:07 Dose: 40 mg Hydrochlorothiazide (Hydrodiuril) 25 mg PO DAILY [facility] Last Admin: 07/12/17 10:06 Dose: 25 mg Sodium Chloride (Sodium Chloride 0.45%) 500 mls @ 40 mls/hr IV .[id number] [facility] Last Admin: 07/12/17 02:45 Dose: 40 mls/hr Levothyroxine Sodium (Synthroid) 125 mcg PO DAILY [facility] Last Admin: 07/12/17 10:06 Dose: 125 mcg - Labs Labs: 07/12/17 05:50 07/12/17 05:50 PT 10.6 Seconds (9.9-11.8) 07/10/17 17:00 INR 0.98 (0.93-1.08) 07/10/17 17:00 APTT 28.0 Seconds (23.7-30.8) 07/10/17 17:00 - Constitutional Appears: Well, No Acute Distress - Head Exam Head Exam: ATRAUMATIC, NORMOCEPHALIC - Eye Exam Eye Exam: EOMI, Normal appearance, PERRL - ENT Exam ENT Exam: Mucous Membranes Moist, Normal Oropharynx - Neck Exam Neck Exam: Normal Inspection - Respiratory Exam Respiratory Exam: Clear to Ausculation Bilateral, NORMAL BREATHING PATTERN. absent: Rales - Cardiovascular Exam Cardiovascular Exam: RRR, +S1, +S2 - GI/Abdominal Exam GI & Abdominal Exam: Soft, Normal Bowel Sounds. absent: Guarding, Rebound - Extremities Exam Extremities Exam: Full ROM, Normal Capillary Refill, Normal Inspection - Neurological Exam Neurological Exam: Alert, Awake, CN II-XII Intact, Oriented x3 - Psychiatric Exam Psychiatric exam: Normal Affect, Normal Mood - Skin Skin Exam: Dry, Intact, Normal Color, Warm Assessment and Plan - Assessment and Plan (Free Text) Assessment: 67 year old female with past medical history of carpal tunnel syndrome and hypertension who presented with hypertensive urgency (resolved) and chest pain with EKG changes. Cardiology performed cardiac cath today. D-dimer was elevated however CT angio was negative for PE. Continue with aspirin and statin. She is also on synthroid for hypothyroidism. LFTs are chronically elevated. Hepatitis panel was negative. Plan: 1) Hypertensive Urgency - Patient's denies any headache, visual disturbances, but admits to chronic right arm pain due to severe carpal tunnel - Patient's blood pressurehas been well controlled in hospital on HCTZ 25. 2) mildly elevated D-dimer - CT PE protocol (-) for PE 3) Suspicion for CAD given EKG changes -Lovenox, aspirin, and lipitor Dr. Montes performed cath today, awaiting results and recommendations - Last stress test was read as normal 4) Hypothyroidism - C/W 125 mcg of Levothyroxine 5) Mildly elevated LFTs - Viral Hepatitis panel (-) <David Chavez MD - Last Filed: 07/12/17 17:36> Objective - Vital Signs/Intake and Output Vital Signs (last 24 hours): Temp Pulse Resp BP Pulse Ox 99.5 F 54 L 16 110/71 95 07/12/17 11:47 07/12/17 17:25 07/12/17 17:25 07/12/17 17:25 07/11/17 21:10 Intake and Output: 07/12/17 07/12/17 06:59 18:59 Intake Total 180 Output Total 100 Balance 180 -100 - Medications Medications: Current Medications Aspirin (Aspirin Chewable) 81 mg PO DAILY [facility] Last Admin: 07/12/17 10:06 Dose: 81 mg Atorvastatin Calcium (Lipitor) 80 mg PO DIN [facility] Last Admin: 07/12/17 16:33 Dose: 80 mg Cyclobenzaprine HCl (Flexeril) 5 mg PO Q8H PRN PRN Reason: Muscle spasm Last Admin: 07/12/17 05:19 Dose: 5 mg Enoxaparin Sodium (Lovenox) 40 mg SC DAILY [facility] PRN Reason: Protocol Last Admin: 07/12/17 10:07 Dose: 40 mg Hydrochlorothiazide (Hydrodiuril) 25 mg PO DAILY [facility] Last Admin: 07/12/17 10:06 Dose: 25 mg Sodium Chloride (Sodium Chloride 0.45%) 500 mls @ 40 mls/hr IV .[id number] [facility] Last Admin: 07/12/17 02:45 Dose: 40 mls/hr Levothyroxine Sodium (Synthroid) 125 mcg PO DAILY [facility] Last Admin: 07/12/17 10:06 Dose: 125 mcg - Labs Labs: 07/12/17 05:50 07/12/17 05:50 PT 10.6 Seconds (9.9-11.8) 07/10/17 17:00 INR 0.98 (0.93-1.08) 07/10/17 17:00 APTT 28.0 Seconds (23.7-30.8) 07/10/17 17:00 Attending/Attestation - Attestation I have personally seen and examined this patient.: Yes I have fully participated in the care of the patient.: Yes I have reviewed all pertinent clinical information, including history, physical exam and plan: Yes Notes (Text): 07/12/17 17:33 Patient was seen and examined with medical officer. Agreed with resident assessment and plan. 67 year old female with past medical history of carpal tunnel syndrome and hypertension who presented with hypertensive urgency (resolved) and chest pain with EKG changes. . D-dimer was elevated however CT angio was negative for PE.Patient troponins were normal.She underwent cardiac catherization today, no intervention was done.Patient is having oozing of blood from the site of catherization.We will monitor, if no further bleeding and patient remain stable , can be discharged home. Management plan was discussed in detail with patient Education was provided.
--- NOTE | 2017-07-12 21:04 | CARDCATH ---
PROCEDURE DATE: 07/12/2017 INDICATIONS: The patient is a 67-year-old female who is a very poor historian. She presented because of what she describes as right carpal tunnel syndrome. EKG was consistent with lateral ischemia. A cardiac catheterization was recommended. The procedure and its risks were fully explained to the patient who understood and agreed for the procedure. PROCEDURE: After local infiltration with 1% lidocaine a 6-Malagasy sheath was placed in the right femoral artery. Left to right coronary angiography were performed with 6-Malagasy JL-4 and JR-4 diagnostic catheters. ANGIOGRAPHIC FINDINGS: Selective injection of the left coronary artery revealed a single left anterior descending artery origin from the left coronary cusp. That vessel had insignificant ostial and proximal narrowing and no significant disease. Selective injection of the right coronary artery revealed a large dominant vessel that was angiographically unremarkable with the origin of a medium sized circumflex artery from nearly the same right coronary ostium. The course of that circumflex artery appears to be posterior to the aorta. There was no significant disease noted in either right coronary or circumflex artery. 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 Otherwise no significant coronary artery disease. RECOMMENDATIONS: No further cardiac workup is indicated at this point. The patient needs to be maintained on aspirin and beta-blockers. Samm Montes MD
[2017-07-12] MEDS ORDERED: POLYETHYLENE GLYCOL 3350 17 GM/Dose PACKET PO PRN (21:34)
[2017-07-13] MEDS: Sodium Chloride 0.45% 500 ML IV SCH (04:55)
[2017-07-13 06:44] VITALS: O2SAT 95
[2017-07-13 07:55] LABS: BASO # 0.03 K/mm3 (0.0-2.0); BASO % 0.3 % (0.0-3.0); EOS # 0.1 (0.0-0.7); EOS % 0.8 % (1.5-5.0); GRAN # 7.84 (1.4-6.5); GRAN % 81.9 % (50.0-68.0); HEMATOCRIT 43.6 % (36.0-48.0); LYMPH % 10.9 % (22.0-35.0); MEAN CORPUSCULAR HEMOGLOBIN 30.9 pg (25.0-35.0); MEAN CORPUSCULAR HGB CONC 33.9 g/dl (31.0-37.0); MEAN PLATELET VOLUME 11.2 fl (7.0-11.0); MONO # 0.6 (0.1-0.6); MONO % 6.1 % (1.0-6.0); RED CELL DISTRIBUTION WIDTH 13.5 % (11.5-14.5); WHITE BLOOD COUNT 9.6 10^3/ul (4.5-11.0)
[2017-07-13 08:07] LABS: ALKALINE PHOSPHATASE 92 U/L (38-126); ALT/SGPT 85 U/L (7-56); AST/SGOT 65 U/L (14-36); BILIRUBIN,TOTAL 0.9 mg/dL (0.2-1.3); BLOOD UREA NITROGEN 17 mg/dL (7-21); CALCIUM 9.2 mg/dL (8.4-10.5); CARBON DIOXIDE 28 mmol/L (21-33); CHLORIDE 102 mmol/L (98-107); GFR AFRICAN-AMERICAN > 60; GLUCOSE,RANDOM 110 mg/dL (70-110); SODIUM 140 mmol/L (132-148); TOTAL PROTEIN 8.7 g/dL (5.8-8.3)
[2017-07-13] MEDS: Enoxaparin 40 mg Syringe SC SCH ×2 (09:29→09:34)
[2017-07-13] MEDS: Levothyroxine 125 MCG TAB PO SCH (09:29)
[2017-07-13 12:28] VITALS: BP 101/40; PULSE 55; RESP 19; TEMP 98.4
--- NOTE | 2017-07-13 15:21 | CP.PCM.DIS ---
Provider - Provider Date of Admission: 07/11/17 13:06 Attending physician: Ector West MD Primary care physician: NO PRIMARY CARE PROVIDER Consults: Dr. Montes Time Spent in preparation of Discharge (in minutes): 33 Hospital Course - Lab Results Lab Results: Most Recent Lab Values WBC 9.6 10^3/ul (4.5-11.0) D 07/13/17 07:00 RBC 4.79 10^6/uL (3.5-6.1) 07/13/17 07:00 Hgb 14.8 g/dL (12.0-16.0) 07/13/17 07:00 Hct 43.6 % (36.0-48.0) 07/13/17 07:00 MCV 91.0 fl (80.0-105.0) 07/13/17 07:00 MCH 30.9 pg (25.0-35.0) 07/13/17 07:00 MCHC 33.9 g/dl (31.0-37.0) 07/13/17 07:00 RDW 13.5 % (11.5-14.5) 07/13/17 07:00 Plt Count 249 10^3/uL (120.0-450.0) 07/13/17 07:00 MPV 11.2 fl (7.0-11.0) H 07/13/17 07:00 Gran % 81.9 % (50.0-68.0) H 07/13/17 07:00 Lymph % (Auto) 10.9 % (22.0-35.0) L 07/13/17 07:00 [place] % (Auto) 6.1 % (1.0-6.0) H 07/13/17 07:00 Eos % (Auto) 0.8 % (1.5-5.0) L 07/13/17 07:00 Baso % (Auto) 0.3 % (0.0-3.0) 07/13/17 07:00 Gran # 7.84 (1.4-6.5) H 07/13/17 07:00 Lymph # 1.0 (1.2-3.4) L 07/13/17 07:00 [place] # 0.6 (0.1-0.6) 07/13/17 07:00 Eos # 0.1 (0.0-0.7) 07/13/17 07:00 Baso # 0.03 K/mm3 (0.0-2.0) 07/13/17 07:00 PT 10.6 Seconds (9.9-11.8) 07/10/17 17:00 INR 0.98 (0.93-1.08) 07/10/17 17:00 APTT 28.0 Seconds (23.7-30.8) 07/10/17 17:00 D-Dimer, Quantitative 0.65 mg/L FEU (0-0.50) H 07/10/17 17:00 Sodium 140 mmol/L (132-148) 07/13/17 07:00 Potassium 4.0 mmol/L (3.6-5.0) 07/13/17 07:00 Chloride 102 mmol/L (98-107) 07/13/17 07:00 Carbon Dioxide 28 mmol/L (21-33) 07/13/17 07:00 Anion Gap 14 (10-20) 07/13/17 07:00 BUN 17 mg/dL (7-21) 07/13/17 07:00 Creatinine 0.8 mg/dL (0.5-1.4) 07/13/17 07:00 Est GFR ( Amer) > 60 07/13/17 07:00 Est GFR (Non-Af Amer) > 60 07/13/17 07:00 Random Glucose 110 mg/dL (70-110) 07/13/17 07:00 Calcium 9.2 mg/dL (8.4-10.5) 07/13/17 07:00 Total Bilirubin 0.9 mg/dL (0.2-1.3) 07/13/17 07:00 AST 65 U/L (14-36) H 07/13/17 07:00 ALT 85 U/L (7-56) H 07/13/17 07:00 Alkaline Phosphatase 92 U/L (38-126) 07/13/17 07:00 Lactate Dehydrogenase 493 U/L (333-699) 07/10/17 21:45 Total Creatine Kinase 274 U/L (35-230) H 07/10/17 21:45 CK-MB (CK-2) 2.6 ng/mL (0.0-3.6) 07/10/17 21:45 CK-MB (CK-2) % Cancelled 07/10/17 03:40 Troponin I < 0.01 ng/mL 07/10/17 21:45 Total Protein 8.7 g/dL (5.8-8.3) H 07/13/17 07:00 Albumin 4.5 g/dL (3.0-4.8) 07/13/17 07:00 Globulin 4.3 gm/dL 07/13/17 07:00 Albumin/Globulin Ratio 1.0 (1.1-1.8) L 07/13/17 07:00 Free T4 0.86 ng/dL (0.78-2.19) 07/10/17 17:00 TSH 3rd Generation 5.53 mIU/mL (0.46-4.68) H 07/10/17 09:50 Hepatitis A IgM Ab Negative (NEGATIVE) 07/10/17 09:50 Hep Bs Antigen Negative (NEGATIVE) 07/10/17 09:50 Hep B Core IgM Ab Negative (NEGATIVE) 07/10/17 09:50 Hepatitis C Antibody Negative (NEGATIVE) 07/10/17 09:50 - Hospital Course Hospital Course: 67 year old female with a past medical history of hypertension, hypothyroidism, right carpal tunnel syndrome who [place] [facility] [place] with right arm pain, blurred vision, and right occipital headache. In the ED, initial diagnostic tests revealed T-wave inversion in 07/11: CT angio negative for PE. 07/12: Cardiac cath procedure today. PT consulted, recommended PT services when patient is medically appropriate Discharge Exam - Head Exam Head Exam: ATRAUMATIC, NORMOCEPHALIC Discharge Plan - Follow Up Plan Condition: FAIR Disposition: HOME/ ROUTINE Instructions: Chest Pain (DC), Hypertension (DC), Hypertension (GEN), Heart Catheterization (DC) Additional Instructions: 1) Continue to monitor blood pressure at home. Do not take Nifedipine if systolic blood pressure is below 110 mm Hg. 2) Please see your PMD, Dr. Geiger, within one week of discharge. 3) Please take any prescribed medications as directed. 4) Please recheck TSH after 6 weeks of discharge date. 5) Aspirin 81 mg daily. Return to nearest ER if symptoms worsen. Referrals: PCP,NO [Primary Care Provider] -
--- NOTE | 2017-07-13 18:10 | PN ---
SUBJECTIVE: The patient denies any chest pain. No reported groin bleeding. PHYSICAL EXAMINATION: VITAL SIGNS: Blood pressure 101/40, heart rate 65, temperature 98.4, respiration 19. HEENT: Normocephalic. CHEST: Clear. HEART: S1 and S2 regular. EXTREMITIES: No groin hematoma. LABORATORY DATA: Hemoglobin, hematocrit, white count and platelet count are within normal limit. SMA-7 is within normal limit. ASSESSMENT: 1. Hypertension. 2. Hypothyroidism. 3. Right carpal tunnel syndrome. 4. 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 RECOMMENDATIONS: Continue current aspirin, Lipitor, hydrochlorothiazide and Synthroid. I consider initiating a low-dose beta-brandon therapy. No coronary intervention is needed at this time. Samm Montes MD
== END 2017-07-13 14:43 | disposition home or self-care (01) | DRG 125 ==
LOC: ED 02:04 → ERH 05:21 → CCU 07:28 → OBSVTOIN 07-11 13:06 → 2RNO 07-11 21:29 → 2RSO 07-12 14:49
PROVIDERS: ADMIT Internal Medicine; ATTEND Internal Medicine
PROC: B2161ZZ Fluoroscopy of Right and Left Heart using Low Osmolar Contrast (ICD-10-PCS; principal; 2017-07-12)
DX: I16.0 Hypertensive urgency (principal); R00.1 Bradycardia, unspecified; E03.9 Hypothyroidism, unspecified; I16.1 Hypertensive emergency; I10 Essential (primary) hypertension; E78.5 Hyperlipidemia, unspecified; G56.01 Carpal tunnel syndrome, right upper limb; Z85.038 Personal history of other malignant neoplasm of large intestine; Z90.49 Acquired absence of other specified parts of digestive tract